=== PATIENT | male | born 1960 | race Caucasian/White ===

== ENCOUNTER 2019-08-31 14:54 | Emergency (ER) | payer OTHER, SELFPAY ==
[2019-08-31 14:55] VITALS: BP 147/81; PULSE 85; RESP 18; TEMP 36.6; O2SAT 100
--- NOTE | 2019-08-31 15:06 | ED.GENADULT ---
HPI - General Adult General Chief complaint: Head Injury <Rufus Mosquera PA-C - Last Filed: 08/31/19 15:10> Stated complaint: HEAD INJURY <Rufus Mosquera PA-C - Last Filed: 08/31/19 15:10> Time Seen by Provider: 08/31/19 15:04 <Rufus Mosquera PA-C - Last Filed: 08/31/19 15:10> Source: patient <Rufus Mosquera PA-C - Last Filed: 08/31/19 15:10> Mode of arrival: ambulatory <Rufus Mosquera PA-C - Last Filed: 08/31/19 15:10> Limitations: no limitations <Rufus Mosquera PA-C - Last Filed: 08/31/19 15:10> History of Present Illness HPI narrative: Patient is a 59-year-old male who presents to emergency department for evaluation of head injury noting that he was cutting a branch down when it struck him in the left temporal region where he developed bleeding patient denies syncope loss of consciousness notes mild discomfort at the location of the wound denies headache or neck pain and presents per private vehicle in no distress. Patient notes his tetanus to be up-to-date <Rufus Mosquera PA-C - Last Filed: 08/31/19 15:10> Related Data Home medications: Home Medications Medication Instructions Recorded Confirmed atorvastatin 08/31/19 lisinopril 08/31/19 metoprolol tartrate 08/31/19 nitroglycerin mg 08/31/19 rosuvastatin mg 08/31/19 ticagrelor [Brilinta] mg 08/31/19 <Rufus Mosquera PA-C - Last Filed: 08/31/19 15:10> Allergies/adverse reactions: Allergies Allergy/AdvReac Type Severity Reaction Status Date / Time Sulfa (Sulfonamide Allergy Unknown Hives Verified 08/31/19 14:57 Antibiotics) <Rufus Mosquera PA-C - Last Filed: 08/31/19 15:10> Review of Systems Review of Systems: All systems reviewed & are unremarkable except as noted in HPI and below <Rufus Mosquera PA-C - Last Filed: 08/31/19 15:10> PMFSH Past Medical History Medical History: Medical History (Updated 08/31/19 @ 15:10 by Rufus Mosquera PA-C) Hypertension <Rufus Mosquera PA-C - Last Filed: 08/31/19 15:10> Surgical History Surgical History: Surgical History (Updated 08/31/19 @ 15:07 by Rufus Mosquera PA-C) Stented coronary artery <Rufus Mosquera PA-C - Last Filed: 08/31/19 15:10> Family History Family History: Family History Sibling Patient's brother is in good health Mother Family history of elevated blood lipids Father Family history of lung cancer Patient's father is <Rufus Mosquera PA-C - Last Filed: 08/31/19 15:10> Social History Social History: Social History Smoking status: Never smoker Alcohol intake: current Gender identity (if verbalized by the patient): Male <Rufus Mosquera PA-C - Last Filed: 08/31/19 15:10> Exam Narrative: Exam Narrative: GENERAL: Well-appearing, well-nourished, and in no acute distress. HEAD: Normocephalic, 1 cm superficial linear laceration left temporal parietal scalp EYES: PERRLA and EOMI. ENT: Nares clear, no rhinorrhea or epistaxis. Mucous membranes moist. Oropharynx without tonsillar hypertrophy exudate or other lesions. NECK: Supple. No adenopathy or masses. CHEST: Clear to auscultation. No respiratory distress. No wheezes rales or rhonchi HEART: Regular rate and rhythm. No murmur heard. EXTREMITIES: Normal range of motion. No edema. No cervical spine tenderness to palpation SKIN: Warm, dry, no rash. NEURO: No focal deficits. Alert and oriented x3. Cranial nerves II through XII grossly intact PSYCH: Normal mood and affect. <Rufus Mosquera PA-C - Last Filed: 08/31/19 15:10> Course Course Emergency Course: Patient in the room in no distress aware of case findings treatment plan and diagnosis <Rufus Mosquera PA-C - Last Filed: 08/31/19 15:10> Vital Signs Vital signs: Vital Signs Temperature
== END 2019-08-31 15:24 | disposition home or self-care (01) ==
LOC: ANHED 15:21
PROVIDERS: Emergency Provider General Practice; PCP Internal Medicine
DX: S01.01XA Laceration without foreign body of scalp, initial encounter (principal); I10 Essential (primary) hypertension; Y93.H2 Activity, gardening and landscaping; W20.8XXA Other cause of strike by thrown, projected or falling object, initial encounter
CPT/HCPCS: 12001; 99282

== ENCOUNTER 2021-02-23 06:44 | Outpatient (CLI) | payer OTHER, SELFPAY ==
[2021-02-23 07:53] LABS: Alanine Aminotransferase 36 U/L (4-50); Albumin Level 4.1 g/dL (3.5-5.1); Alkaline Phosphatase 73 U/L (38-126); Anion Gap 5 mmol/L (8-16); Aspartate Amino Transferase 33 U/L (17-59); Bilirubin,Total 0.5 mg/dL (0.2-1.3); Blood Urea Nitrogen 21 mg/dL (9-20); Calcium 9.3 mg/dL (8.4-10.2); Carbon Dioxide 29 mmol/L (22-30); Chloride 105 mmol/L (98-107); Cholesterol 178 mg/dL (0-200); Estimated Glomerular Filt Rate > 60; Glucose 88 mg/dL (65-110); HDL Direct 54 mg/dL; Potassium 4.7 mmol/L (3.4-5.0); Sodium 139 mmol/L (137-145); Triglycerides 125 mg/dL (<150)
[2021-02-23 08:04] LABS: LDL Cholesterol Direct 89 mg/dL
[2021-02-23 08:22] LABS: Prostate Specific Antigen 0.7 ng/mL (< OR = 4.0)
== END 2021-02-23 06:45 | disposition home or self-care (01) ==
PROVIDERS: PCP Internal Medicine; Visit Provider Internal Medicine
DX: I21.11 ST elevation (STEMI) myocardial infarction involving right coronary artery (principal); E78.5 Hyperlipidemia, unspecified; Z12.5 Encounter for screening for malignant neoplasm of prostate
CPT/HCPCS: 36415; 80053; 80061; 84153; G0103

== ENCOUNTER 2022-03-08 07:05 | Outpatient (CLI) | payer OTHER, SELFPAY ==
[2022-03-08 07:32] LABS: Alanine Aminotransferase 20 U/L (6-50); Alkaline Phosphatase 83 U/L (38-126); Anion Gap 8 mmol/L (8-16); Aspartate Amino Transferase 24 U/L (17-59); Bilirubin,Total 0.4 mg/dL (0.2-1.3); Blood Urea Nitrogen 25 mg/dL (9-20); Calcium 8.8 mg/dL (8.4-10.2); Carbon Dioxide 28 mmol/L (22-30); Chloride 102 mmol/L (98-107); Cholesterol 216 mg/dL (0-200); Estimated Glomerular Filt Rate > 60; Glucose 88 mg/dL (65-110); HDL Direct 47 mg/dL; Potassium 4.2 mmol/L (3.4-5.0); Sodium 138 mmol/L (137-145); Triglycerides 109 mg/dL (<150)
[2022-03-08 07:40] LABS: LDL Cholesterol Direct 138 mg/dL
[2022-03-08 07:59] LABS: Prostate Specific Antigen 1.7 ng/mL (< OR = 4.0)
== END 2022-03-08 07:06 | disposition home or self-care (01) ==
LOC: ANHLAB 07:08
PROVIDERS: PCP Internal Medicine; Visit Provider Internal Medicine
DX: Z12.5 Encounter for screening for malignant neoplasm of prostate (principal); I21.11 ST elevation (STEMI) myocardial infarction involving right coronary artery; E78.5 Hyperlipidemia, unspecified
CPT/HCPCS: 36415; 80053; 80061; 84153; G0103

== ENCOUNTER 2022-03-17 12:38 | Emergency (ER) | payer OTHER, SELFPAY ==
[2022-03-17] VITALS (7 sets, daily range): BP systolic 129–161; BP diastolic 70–81; PULSE 72–82; RESP 14–23; TEMP 36.8; O2SAT 94–99
--- NOTE | ~2022-03-17 | CT_ITS ---
EXAMINATION: CT brain wo con INDICATION: Right-sided facial droop, gaze palsy COMPARISON: None TECHNIQUE: Standard unenhanced head CT. The dose-length product (DLP) was 605.33 mGy-cm. The mA was a djusted according to patient size. Iterative reconstruction technique was employed. FINDINGS: There is no intracranial hemorrhage, acute infarction, or abnormal mass lesion. The ventric les are normal. There is no abnormal mass effect or midline shift. The head-white matter differentiat ion is normal. The basal cisterns are patent. The orbits are normal. The paranasal sinuses, mastoids and calvarium are normal. IMPRESSION: 1. No acute intracranial abnormality. Reviewed, dictated and finalized at location B.
--- NOTE | ~2022-03-17 | XR_ITS ---
EXAMINATION: XR chest 1V INDICATION: Right-sided facial droop TECHNIQUE: AP view of the chest is obtained. COMPARISON: 11/10/2018 FINDINGS: The lungs are free of acute opacities. No pleural effusion or pneumothorax. The cardiomedia stinal silhouette is normal. IMPRESSION: 1. No acute cardiopulmonary abnormality. Reviewed, dictated and finalized at location B.
[2022-03-17 12:56] LABS: Glucose Point of Care 133 mg/dl (65-105)
--- NOTE | 2022-03-17 12:57 | ECG_ITS ---
Measurements Intervals [place] Rate: 65 P: 59 ID: 157 QRS: 20 QRSD: 102 T: 7 QT: 379 QTc: 397 Interpretive Statements SINUS RHYTHM CONSIDER INFERIOR INFARCT, AGE INDETERMINATE BASELINE ARTIFACT- AVR, V1 ABNORMAL ECG COMPARED TO ECG 11/10/2018 19:56:52 NO SIGNIFICANT CHANGES Electronically Signed On 03-17-2022 15:44:17 CDT by Evans Garcia D.O.
[2022-03-17 13:08] LABS: Basophils Absolute Auto 0.1 K/mm3 (0.0-0.1); Basophils Percent Auto 0.6 % (0.2-1.2); Eosinophils Absolute Auto 0.3 K/mm3 (0-0.3); Eosinophils Percent Auto 3.8 % (0-4.4); Hematocrit 44.6 % (42.0-52.0); Hemoglobin 15.5 g/dL (14.0-18.0); Immature Granulocyte Absolute 0.03 K/mm3 (0.00-0.031); Immature Granulocyte Percent A 0.3 % (0-0.5); Lymphocytes Absolute Auto 2.35 K/mm3 (0.9-3.2); Lymphocytes Percent Auto 26.9 % (18.3-44.2); Mean Corpuscular HGB Conc 34.8 g/dl (32-36); Mean Corpuscular Hemoglobin 31.3 pg (26-34); Mean Corpuscular Volume 89.9 fl (80-100); Monocytes Absolute Auto 0.7 K/mm3 (0.1-0.6); Neutrophils Absolute Auto 5.3 K/mm3 (1.3-6.7); Neutrophils Percent Auto 60.4 % (45.5-73.1); Platelet Count Result 227 k/mm3 (150-375); Red Blood Count 4.96 M/mm3 (4.6-6.20); Red Cell Distribution Width 11.9 % (11.5-14.5); White Blood Count 8.8 K/mm3 (4.5-10.0)
--- NOTE | 2022-03-17 13:12 | ED.NEUROSD ---
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 Patient denies any numbness, tingling or weakness anywhere else in his body. History of hyperlipidemia, intermittent marijuana use,. He denies any fever, chills, nausea, vomiting, chest pain or shortness of breath Related Data Home Medications Medication Instructions Recorded Confirmed lisinopril 2.5 mg tablet 08/31/19 01/21/22 metoprolol tartrate 25 mg tablet 08/31/19 01/21/22 ticagrelor 90 mg tablet (Brilinta) mg 08/31/19 01/21/22 aspirin 81 mg tablet,delayed 81 mg PO DAILY 01/18/21 01/21/22 release (Adult Aspirin Regimen) ezetimibe 10 mg tablet 10 mg PO DAILY 01/21/22 01/21/22 Allergies Allergy/AdvReac Type Severity Reaction Status Date / Time Sulfa (Sulfonamide Allergy Unknown Hives Verified 03/17/22 12:57 Antibiotics) Review of Systems Review of Systems: All systems reviewed & are unremarkable except as noted in HPI and below PMFSH Past Medical History Medical History Hypertension Surgical History Surgical History Stented coronary artery Family History Family History Sibling Patient's brother is in good health Mother Family history of elevated blood lipids Father Family history of lung cancer Patient's father is Social History Social History Smoking status: Never smoker Alcohol intake: current Drinks per week: 3 Alcohol use details: 3 or 4 per week Substance use: current Substance use type: marijuana Gender identity (if verbalized by the patient): Male Exam Narrative: General appearance: Well-developed, well-nourished Skin: Normal color Head: Normocephalic, nontraumatic, unable to raise the right eyebrow, flat forehead muscles when he tried to wrinkle his forehead Eyes: Clear conjunctiva, unable to close right eye ENT: Oropharynx normal, ears normal, nose normal, right facial drooping, active left facial muscle when he smiles, right side is paralyzed Neck: Supple, nontender Chest and respiratory: Airway patent, no respiratory distress, no accessory muscle use Heart: Regular rate/rhythm Abdomen: Soft, nontender, no organomegaly, quiet bowel sounds Vascular: Normal peripheral pulses, normal capillary refill. Musculoskeletal: Normal range of motion, nontender back Neurologic: Alert and oriented ?3, TAILER OFF is normal as tested, no gross motor deficit Course Course Emergency Course: Stable Vital Signs Vital signs: Vital Signs Blood Pressure 161/79 H 03/17/22 12:48 Pulse Oximetry 95 03/17/22 12:48 Temperature 36.8 C 03/17/22 12:58 Pulse Rate 78 03/17/22 14:31 Respiratory Rate 23 H 03/17/22 14:31 Blood Pressure 132/74 03/17/22 14:31 Pulse Oximetry 94 03/17/22 14:31 Oxygen Delivery Room Air 03/17/22 12:52 MDM - Neuro Symptoms/Deficit Lab Data Result diagrams: 03/17/22 13:01 03/17/22 13:01 Labs: Lab Results 03/17/22 03/17/22 03/17/22 Range/Units 12:54 13:00 13:01 WBC 8.8
[2022-03-17 13:19] LABS: Alanine Aminotransferase 27 U/L (6-50); Albumin Level 4.6 g/dL (3.5-5.1); Alkaline Phosphatase 79 U/L (38-126); Anion Gap 13 mmol/L (8-16); Aspartate Amino Transferase 33 U/L (17-59); Bilirubin,Total 0.6 mg/dL (0.2-1.3); Blood Urea Nitrogen 22 mg/dL (9-20); Calcium 9.1 mg/dL (8.4-10.2); Carbon Dioxide 25 mmol/L (22-30); Chloride 102 mmol/L (98-107); Estimated CRCL calculation 85 ml/min; Estimated Glomerular Filt Rate > 60; Glucose 111 mg/dL (65-110); Potassium 4.1 mmol/L (3.4-5.0); Sodium 140 mmol/L (137-145)
[2022-03-17 13:26] LABS: Partial Thromboplastin Time 27.4 SECONDS (22.3-36.8); Prothrombin Time 12.6 Seconds (11.1-14.7)
[2022-03-17 13:31] LABS: Troponin I < 0.012 ng/mL (0.000-0.034)
[2022-03-17 14:00] LABS: Hemoglobin A1C 5.3 % (<5.7)
== END 2022-03-17 15:05 | disposition home or self-care (01) ==
PROVIDERS: Emergency Provider Emergency Medicine; PCP Internal Medicine
DX: G51.0 Bell's palsy (principal); I10 Essential (primary) hypertension; E78.5 Hyperlipidemia, unspecified; Z79.01 Long term (current) use of anticoagulants; Z79.82 Long term (current) use of aspirin; Z95.5 Presence of coronary angioplasty implant and graft; F12.90 Cannabis use, unspecified, uncomplicated; R29.703 NIHSS score 3; Z79.899 Other long term (current) drug therapy
CPT/HCPCS: 36415; 70450; 71045; 80053; 82948; 83036; 84443; 84484; 85025; 85610; 85730; 93005; 99284

== ENCOUNTER 2022-06-10 00:39 | Day surgery (SDC) | payer OTHER, SELFPAY ==
[2022-05-25 14:04] VITALS: BMI 22.4
[2022-06-10 08:51] VITALS: BP 139/72; PULSE 73; RESP 18; TEMP 36.4; O2SAT 100
[2022-06-10] MEDS: LACTATED RINGERS 1,000 ML 150 ML IV CONT (09:02)
--- NOTE | 2022-06-10 09:03 | WPDANESEPPF ---
Anes - Initial Pre Proc Eval Procedure: Operation Date: 06/10/22 10:00 Proposed Procedures p Screening Colonoscopy - Arun Orellana MD Date/Time: 06/10/22 09:03 Surgeon: Arun Orellana MD Pre Op Diagnosis: hx of colon polyps Patient Data Age: 61 Gender: M Height: 1.68 m Weight: 62 kg Last Vital Signs Temp 36.4 C 06/10/22 08:51 Pulse 73 06/10/22 08:51 Resp 18 06/10/22 08:51 BP 139/72 06/10/22 08:51 Pulse Ox 100 06/10/22 08:51 O2 Del Method Room Air 06/10/22 08:51 Allergies Allergy/AdvReac Type Severity Reaction Status Date / Time Sulfa (Sulfonamide Allergy Unknown Hives Verified 06/10/22 08:50 Antibiotics) Home Medications Medication Instructions Recorded Confirmed Type metoprolol tartrate 25 mg tablet 25 mg PO DAILY 08/31/19 05/25/22 History aspirin 81 mg tablet,delayed 81 mg PO DAILY 01/18/21 05/25/22 History release (Adult Aspirin Regimen) ezetimibe 10 mg tablet 10 mg PO DAILY 01/21/22 05/25/22 History sodium,potassium,mag sulfates 17.5 See Rx Instructions PO .COMPLEX 04/26/22 Rx gram-3.13 gram-1.6 gram oral soln #354 mL (Suprep Bowel Prep Kit) Patient hx anesthesia problems: none Family hx anesthesia problems: none Results Review: All pre-operative results and documents have been reviewed as part of the pre-operative evaluation. [facility] Past Medical History Medical History (Updated 06/10/22 @ 09:03 by Moise Barbosa MD) CAD (coronary artery disease) Hypertension Surgical History Surgical History History of coronary artery stent placement Stented coronary artery Family History Family History Sibling Patient's brother is in good health Mother Family history of elevated blood lipids Father Family history of lung cancer Patient's father is Social History Social History Smoking status: Never smoker Alcohol intake: current Drinks per week: 6 Alcohol use details: 3 or 4 per week Substance use: current Substance use type: marijuana Other substance usage details: occasionally Living arrangements: alone Gender identity (if verbalized by the patient): Male Spiritual care concerns: No Anes - Eval Final PreProcedure Day of Procedure 06/10/22 09:03 Patient weight: normal Heart: regular rate and rhythm Lungs: clear to auscultation Airway: Mallampati scale Neurological: alert and oriented Last oral intake: >/= 8 hours ASA classification: III Emergent: no Anesthetic plan: proceed Anesthesia type and monitoring: general GIVS and standard monitoring Results Review: All pre-operative results and documents have been reviewed as part of the pre-operative evaluation. Informed Consent: The patient's anesthetic plan and its attendant risks and benefits were discussed with the patient/family/POA. Questions were solicited and answers provided to the satisfaction of the patient/family/POA.
--- NOTE | 2022-06-10 09:20 | PM.HPGS ---
History of Present Illness History of Present Illness Consent: Risks, benefits, and alternatives have been discussed and questions answered. Patient agrees to proceed with procedure. Chief complaint: hx of colon polyps Narrative: Tawanda Arenas is a 61 year old male Presents for screening colonoscopy. Patient's current weight appetite and bowel movements are normal. Patient denies abdominal pain. He has had no bleeding. Family history noncontributory. Patient has previous colonoscopy 2016 revealed benign colon polyps. Patient does have a past medical history of atherosclerotic heart disease and history of heart stent. He is being treated for elevated cholesterol. Review of Systems Review of Systems: Review of systems noncontributory. [facility] Past Medical History Medical History (Updated 06/10/22 @ 09:03 by Moise Barbosa MD) CAD (coronary artery disease) Hypertension Surgical History Surgical History History of coronary artery stent placement Stented coronary artery Family History Family History Sibling Patient's brother is in good health Mother Family history of elevated blood lipids Father Family history of lung cancer Patient's father is Social History Social History Smoking status: Never smoker Alcohol intake: current Drinks per week: 6 Alcohol use details: 3 or 4 per week Substance use: current Substance use type: marijuana Other substance usage details: occasionally Living arrangements: alone Gender identity (if verbalized by the patient): Male Spiritual care concerns: No Meds Home Medications and Allergies Home Medications Medication Instructions Recorded Confirmed Type metoprolol tartrate 25 mg tablet 25 mg PO DAILY 08/31/19 05/25/22 History aspirin 81 mg tablet,delayed 81 mg PO DAILY 01/18/21 05/25/22 History release (Adult Aspirin Regimen) ezetimibe 10 mg tablet 10 mg PO DAILY 01/21/22 05/25/22 History sodium,potassium,mag sulfates 17.5 See Rx Instructions PO .COMPLEX 04/26/22 Rx gram-3.13 gram-1.6 gram oral soln #354 mL (Suprep Bowel Prep Kit) Allergies Allergy/AdvReac Type Severity Reaction Status Date / Time Sulfa (Sulfonamide Allergy Unknown Hives Verified 06/10/22 08:50 Antibiotics) Vital Signs Vital Signs - 24 hr 06/10/22 08:51 Temperature 97.6 F Pulse Rate 73 Respiratory Rate 18 Blood Pressure 139/72 Pulse Oximetry 100 Oxygen Delivery Room Air Exam Narrative: Physical exam reveals patient be alert. Vital signs stable. HEENT exam is unremarkable. Patient is anicteric. Lungs are clear to auscultation and percussion. Heart is without murmur or extra sounds. Abdomen bowel sounds are present soft nontender with no organomegaly. Digital external rectal exam is normal. Assessment and Plan Assessment and plan (1) Hx of adenomatous colonic polyps: Code(s): Z86.010 - Personal history of colonic polyps Status: Acute Assessment and Plan: Patient has a history of adenomatous colon polyp removed from the colon 2016. Plan for surveillance colonoscopy now. Consider this a 5 year intervals in the future.
--- NOTE | 2022-06-10 10:15 | SUR.OPER ---
Dr. Orellana advised that the sigmoid polyp was not retrieved. Angelia Jara and Bianca Santiago
[2022-06-10 10:17] VITALS: BP 110/73; PULSE 64; RESP 23; O2SAT 99
[2022-06-10 10:27] VITALS: BP 140/89; PULSE 61; RESP 17; O2SAT 100
[2022-06-10 10:37] VITALS: BP 154/86; PULSE 53; RESP 23; O2SAT 100
== END 2022-06-10 11:12 | disposition home or self-care (01) ==
PROVIDERS: PCP Internal Medicine; Visit Provider Internal Medicine Gastroenterology
PROC: 0DJD8ZZ Inspection of Lower Intestinal Tract, Via Natural or Artificial Opening Endoscopic (ICD-10-PCS; CPT 45378; principal; 2022-06-10 10:00)
DX: Z12.11 Encounter for screening for malignant neoplasm of colon (principal); D12.2 Benign neoplasm of ascending colon; K63.5 Polyp of colon; K57.30 Diverticulosis of large intestine without perforation or abscess without bleeding; K64.8 Other hemorrhoids; I25.10 Atherosclerotic heart disease of native coronary artery without angina pectoris; I10 Essential (primary) hypertension; E78.00 Pure hypercholesterolemia, unspecified; Z79.82 Long term (current) use of aspirin; Z95.5 Presence of coronary angioplasty implant and graft; F12.90 Cannabis use, unspecified, uncomplicated
CPT/HCPCS: 45385; 88305; J2704; J7120

== ENCOUNTER 2022-12-27 15:45 | Outpatient (RCR) | payer OTHER, SELFPAY ==
--- NOTE | 2022-12-01 16:49 | OPREHPOC ---
Outpatient Therapy Plan of Care This is a Multidisciplinary Plan of Care that may contain components documented by all disciplines (PT, OT, and ST.) PT Problem 1 PT Problem #1 Knowledge Deficit PT Goal 1 Goal Independent with HEP Target Visit 6 PT Problem 2 PT Problem #2 Pain PT Goal 1 Goal no pain over 1/10 with running Target Visit 6 PT Problem 3 PT Problem #3 Impaired Strength PT Goal 1 Goal YAMILEX ankle 5/5 Target Visit 6 PT Problem 4 PT Problem #4 Impaired Flexibility PT Goal 1 Goal mild gastroc tightness to allow for L ankle dorsiflexion of 14 degrees. Target Visit 6
--- NOTE | 2022-12-01 16:49 | PTOPEVAL1 ---
Assessment and note entered by Robin Peralta, PT Evaluation Information Assessment Status Evaluation Diagnosis L foot/ankle pain Onset around Jun last year Subjective Information Patient reports he is an avid runner. Averaging 4 runs from 3-13 miles a week. He was noticing pain in his L ankle when starting his runs, but the pain going away after about 2 miles. He did not do any warm-ups prior to running. About 2-3 weeks ago he also rolled his ankle on a run. Has held off running since then. He has iced the ankle, but does still have some swelling. No radiating pain. Reported Pain Level Pain Score 0: Self Report Assessment PT Clinical Summary Sunil is coming in with L ankle/foot pain. He is negative with all special tests and has good range of motion besides dorsiflexion which I think is from his gastroc tightness. YAMILEX ankles are actually weak 4/5 compared to 5/5 for everything else. Physical therapy will work on stretching gastroc and strengthening ankle muscles along with starting the patient on a pre run warm up routine which should help with his pain. Manual and modalities as needed for pain. Plan of Care Interventions Electrical Stimulation,Gait Training,Hot Pack/Cold Pack,Manual Therapy,Neuro Re-education,Patient/ Caregiver Education,Therapeutic Activities, Therapeutic Exercise,Ultrasound Other Interventions cupping, taping, IASTM PT Services Indicated Yes Treatment Frequency and 1-2x/wk for 4 weeks Duration These treatments will address the objective and functional deficits as defined above. The patient will be advanced safely and appropriately in order for the patient to progress towards his/her prior level of function. Additional exercises will be introduced and as well as a comprehensive home exercise program upon discharge, if needed, ?to ensure carryover of functional gains achieved in the clinic. This treatment plan has been reviewed and agreement upon by the patient.
--- NOTE | 2022-12-27 16:26 | PTOPDC ---
Assessment and note entered by Robin Peralta, PT Evaluation Information Assessment Status Discharge Diagnosis L ankle and foot pain Onset around Jun last year Subjective Information Patient reports no issues with pain running, or not running. Ran a 10 K last weekend and 11 miles this weekend. Patient ready for discharge. Reported Pain Level Pain Score 0: Self Report Pain Score 0: Self Report Assessment PT Clinical Summary Sunil is a 62 year old male coming into the clinic with a diagnosis of L ankle/foot pain. He was evaluated on 12/01/22 and attended 8 sessions. Patient has met all of his goals and continues to run without issue. Discharged from skilled physical therapy. Plan of Care PT Services Indicated No
== END 2022-12-28 07:03 | disposition home or self-care (01) ==
LOC: ANHPT 15:45
PROVIDERS: PCP Family Medicine; Visit Provider Nurse Practitioner Family
DX: M25.572 Pain in left ankle and joints of left foot (principal)
CPT/HCPCS: 97110; 97112; 97161; 97530

== ENCOUNTER 2023-02-09 07:03 | Outpatient (CLI) | payer OTHER, SELFPAY ==
[2023-02-09 07:28] LABS: Hemoglobin 15.3 g/dL (14.0-18.0); Mean Corpuscular Hemoglobin 31.4 pg (26-34); Mean Corpuscular Volume 92.4 fl (80-100); Platelet Count Result 217 k/mm3 (150-375); Red Blood Count 4.87 M/mm3 (4.6-6.20); Red Cell Distribution Width 11.7 % (11.5-14.5)
[2023-02-09 07:40] LABS: Alanine Aminotransferase 59 U/L (6-50); Albumin Level 4.2 g/dL (3.5-5.1); Alkaline Phosphatase 92 U/L (38-126); Anion Gap 5 mmol/L (8-16); Aspartate Amino Transferase 45 U/L (17-59); Bilirubin,Total 0.7 mg/dL (0.2-1.3); Blood Urea Nitrogen 22 mg/dL (9-20); Carbon Dioxide 31 mmol/L (22-30); Chloride 103 mmol/L (98-107); Cholesterol 142 mg/dL (0-200); Estimated Glomerular Filt Rate > 60; Glucose 81 mg/dL (65-110); HDL Direct 40 mg/dL; Potassium 4.2 mmol/L (3.4-5.0); Sodium 139 mmol/L (137-145); Triglycerides 96 mg/dL (<150)
[2023-02-09 07:51] LABS: LDL Cholesterol Direct 78 mg/dL
[2023-02-09 08:10] LABS: Prostate Specific Antigen 0.8 ng/mL (< OR = 4.0)
== END 2023-02-09 07:04 | disposition home or self-care (01) ==
PROVIDERS: PCP Nurse Practitioner; Visit Provider Nurse Practitioner
DX: Z12.5 Encounter for screening for malignant neoplasm of prostate (principal); E78.5 Hyperlipidemia, unspecified; Z79.899 Other long term (current) drug therapy
CPT/HCPCS: 36415; 80053; 80061; 84153; 85027; G0103

== ENCOUNTER 2023-05-20 16:36 | Emergency (ER) | payer OTHER, SELFPAY ==
[2023-05-20] VITALS (21 sets, daily range): BP systolic 128–162; BP diastolic 75–94; PULSE 71–92; RESP 11–24; TEMP 36.4; O2SAT 97–100
--- NOTE | ~2023-05-20 | XR_ITS ---
EXAMINATION: XR chest 1V portable Exam Date/Time: 05/20/2023 16:55 ETHANOL OPERATIONS MANAGER HISTORY: CP; hx of CAD, HTN, non smoker Comparison: 03/17/2022. RESULT: Lines, tubes, and devices: None. Lungs and pleura: Clear. Cardiomediastinal silhouette: Stable. Other: No acute osseous or upper abdominal finding. IMPRESSION: No acute cardiopulmonary process. Reviewed, dictated and finalized at location K. NOL OPERATIONS MANAGER
--- NOTE | ~2023-05-20 | CT_ITS ---
EXAMINATION: CT abdomen pelvis w con DATE: 05/20/2023 17:57 INDICATION: Elevated lipase TECHNIQUE: Computed tomography (CT) of the abdomen and pelvis was performed with 100 mL Omnipaque-350 intravenous contrast. Automated exposure control and iterative reconstruction technique were employe d. The dose-length product was 282.00 mGy-cm. COMPARISON: None. FINDINGS: Lower thorax: Bibasilar scar/atelectasis. Coronary artery calcifications. Liver: Left lobe cyst. Mild adjacent left lobe intrahepatic duct dilation. Biliary/Gallbladder: Gallbladder is normal. No extrahepatic bile duct dilation. Pancreas: No mass or duct dilation. Spleen: Normal. Adrenals:No mass. Kidneys: No suspicious mass, obstructing stone, or hydronephrosis. Simple bilateral cysts. GI tract: Mild distal esophageal and gastric wall edema. No small or large bowel dilation. Normal marshal endix. Mesentery/Peritoneum: No ascites, mass, or free air. Retroperitoneum: No mass. Pelvis: Pelvic organs are within normal limits. Soft Tissues: Soft tissues and body wall unremarkable. Bones: No acute osseous finding. IMPRESSION: Mild esophagitis/gastritis. Otherwise, no acute abdominopelvic process detected. Reviewed, dictated and finalized at location K. 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
--- NOTE | 2023-05-20 16:38 | ECG_ITS ---
Measurements Intervals [place] Rate: 83 P: 65 [place]: 148 QRS: 16 QRSD: 109 T: 37 QT: 386 QTc: 455 Interpretive Statements SINUS RHYTHM ATRIAL AND VENTRICULAR PREMATURE COMPLEXES POSSIBLE LEFT ATRIAL ENLARGEMENT CONSIDER INFERIOR INFARCT, AGE INDETERMINATE BASELINE ARTIFACT- II, III, AVR, AVL, AVF ABNORMAL ECG COMPARED TO ECG 03/17/2022 13:51:03 NO SIGNIFICANT CHANGES Electronically Signed On 05-21-2023 6:19:33 STOCK BROKER by Evans Garcia D.O.
--- NOTE | 2023-05-20 16:38 | ED.CHESTPAIN ---
HPI - Chest Pain General Chief Complaint: Chest Pain Stated Complaint: left chest pain Time Seen by Provider: 05/20/23 16:38 Source: patient Mode of arrival: ambulatory Limitations: no limitations History of Present Illness HPI narrative: 62 years old white male came by private car complaining of feeling dizzy while standing in the charge, resolved on sitting. 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 History of coronary artery disease, 1 stent 2018, patient on aspirin, history of hyperlipidemia. Patient ran 5K this morning without any symptoms. Patient normally runs a 5K every other day he denies any chest pain or shortness of breath during that time. Patient does not smoke or uses drugs, drinks occasionally he denied any stress or anxiety. Related Data Home Medications Medication Instructions Recorded Confirmed aspirin 81 mg tablet,delayed 81 mg PO DAILY 01/18/21 01/27/23 release (Adult Aspirin Regimen) ezetimibe 10 mg tablet 10 mg PO DAILY 01/21/22 01/27/23 Allergies Allergy/AdvReac Type Severity Reaction Status Date / Time Sulfa (Sulfonamide Allergy Unknown Hives Verified 05/20/23 16:49 Antibiotics) Review of Systems Review of Systems: All systems reviewed & are unremarkable except as noted in HPI and below PMFSH Past Medical History Medical History CAD (coronary artery disease) Hypertension Surgical History Surgical History History of coronary artery stent placement Stented coronary artery Family History Family History Sibling Patient's brother is in good health Mother Family history of elevated blood lipids Father Family history of lung cancer Patient's father is Social History Social History Smoking status: Never smoker Alcohol intake: current Drinks per week: 5 Substance use: former Substance use type: marijuana Other substance usage details: occasionally Living arrangements: alone Gender identity (if verbalized by the patient): Male Spiritual care concerns: No Exam Narrative: General appearance: Well-developed, well-nourished, patient looks restless. Skin: Normal color Head: Normocephalic, nontraumatic Eyes: Clear conjunctiva ENT: Oropharynx normal, ears normal, nose normal Neck: Supple, nontender Chest and respiratory: Airway patent, no respiratory distress, no accessory muscle use Heart: Regular rate/rhythm Abdomen: Soft, nontender, no organomegaly, quiet bowel sounds Vascular: Normal peripheral pulses, normal capillary refill. Musculoskeletal: Normal range of motion, nontender back Neurologic: Alert and oriented ?3, MOTOR POLARIZER is normal as tested, no gross motor deficit Course Vital Signs Vital signs: Vital Signs Temperature 36.4 C 05/20/23 16:38 Pulse Rate 80 05/20/23 16:38 Respiratory Rate 20 05/20/23 16:38 Blood Pressure 162/82 H 05/20/23 16:38 Pulse Oximetry 100 05/20/23 16:38 Oxygen Delivery Room Air 05/20/23 16:38 Temperature 36.4 C 05/20/23 16:38 Pulse Rate 77 05/20/23 17:16 Respiratory Rate 19 05/20/23 17:16 Blood Pressure 130/80 05/20/23 17:16 Pulse Oximetry 100 05/20/23 17:16 Oxygen Delivery Room Air 05/20/23 16:47 MDM - Chest Pain MDM Narrative Medical decision making narrative: Patient presents with dizziness Vital signs on arriva
[2023-05-20 16:54] LABS: Basophils Absolute Auto 0.1 K/mm3 (0.0-0.1); Basophils Percent Auto 0.5 % (0.2-1.2); Eosinophils Absolute Auto 0.2 K/mm3 (0-0.3); Eosinophils Percent Auto 1.6 % (0-4.4); Hematocrit 46.5 % (42.0-52.0); Hemoglobin 15.7 g/dL (14.0-18.0); Immature Granulocyte Absolute 0.03 K/mm3 (0.00-0.031); Immature Granulocyte Percent A 0.3 % (0-0.5); Lymphocytes Absolute Auto 3.28 K/mm3 (0.9-3.2); Lymphocytes Percent Auto 30.3 % (18.3-44.2); Mean Corpuscular HGB Conc 33.8 g/dl (32-36); Mean Corpuscular Hemoglobin 30.7 pg (26-34); Mean Platelet Volume 9.7 fl (7.4-10.4); Monocytes Absolute Auto 1.2 K/mm3 (0.1-0.6); Monocytes Percent Auto 10.6 % (2.6-8.5); Neutrophils Absolute Auto 6.2 K/mm3 (1.3-6.7); Neutrophils Percent Auto 56.7 % (45.5-73.1); Platelet Count Result 240 k/mm3 (150-375); Red Blood Count 5.11 M/mm3 (4.6-6.20); Red Cell Distribution Width 11.6 % (11.5-14.5); White Blood Count 10.8 K/mm3 (4.5-10.0)
[2023-05-20 17:06] LABS: Prothrombin Time 13.1 Seconds (11.1-14.7)
[2023-05-20 17:07] LABS: Partial Thromboplastin Time 26.9 SECONDS (22.3-36.8)
[2023-05-20 17:13] LABS: Alanine Aminotransferase 43 U/L (6-50); Albumin Level 4.6 g/dL (3.5-5.1); Alkaline Phosphatase 84 U/L (38-126); Anion Gap 13 mmol/L (8-16); Aspartate Amino Transferase 36 U/L (17-59); Bilirubin,Total 0.7 mg/dL (0.2-1.3); Blood Urea Nitrogen 17 mg/dL (9-20); Calcium 9.2 mg/dL (8.4-10.2); Carbon Dioxide 24 mmol/L (22-30); Chloride 103 mmol/L (98-107); Estimated CRCL calculation 97 ml/min; Estimated Glomerular Filt Rate > 60; Glucose 93 mg/dL (65-110); Lipase 778 U/L (23-300); Potassium 3.5 mmol/L (3.4-5.0); Sodium 140 mmol/L (137-145)
[2023-05-20 17:24] LABS: Troponin I < 0.012 ng/mL (0.000-0.034)
== END 2023-05-20 18:24 | disposition home or self-care (01) ==
PROVIDERS: Emergency Medicine; Emergency Provider Emergency Medicine; PCP Family Medicine
DX: R42 Dizziness and giddiness (principal); K29.70 Gastritis, unspecified, without bleeding; I25.10 Atherosclerotic heart disease of native coronary artery without angina pectoris; I10 Essential (primary) hypertension; E78.5 Hyperlipidemia, unspecified; Z95.5 Presence of coronary angioplasty implant and graft; I49.1 Atrial premature depolarization; I49.3 Ventricular premature depolarization; R94.31 Abnormal electrocardiogram [ECG] [EKG]; Z79.82 Long term (current) use of aspirin
CPT/HCPCS: 36415; 71045; 74177; 80053; 83690; 84484; 85025; 85610; 85730; 93005; 99284; Q9967

== ENCOUNTER 2023-05-26 07:44 | Outpatient (CLI) | payer OTHER, SELFPAY ==
[2023-05-26 09:08] LABS: Lipase 573 U/L (23-300)
== END 2023-05-26 07:45 | disposition home or self-care (01) ==
PROVIDERS: PCP Family Medicine; Visit Provider Nurse Practitioner
DX: R74.8 Abnormal levels of other serum enzymes (principal)
CPT/HCPCS: 36415; 83690

== ENCOUNTER 2023-06-09 07:28 | Outpatient (CLI) | payer OTHER, SELFPAY ==
[2023-06-09 08:25] LABS: Lipase 149 U/L (23-300)
== END 2023-06-09 07:29 | disposition home or self-care (01) ==
PROVIDERS: PCP Family Medicine; Visit Provider Nurse Practitioner
DX: R74.8 Abnormal levels of other serum enzymes (principal)
CPT/HCPCS: 36415; 83690

== ENCOUNTER 2023-07-24 08:27 | Outpatient (CLI) | payer OTHER, SELFPAY ==
--- NOTE | ~2023-07-24 | XR_ITS ---
EXAMINATION:XR_CERV2-3V_CR DATE: 07/24/2023 08:48 INDICATION: Neck pain TECHNIQUE: AP, lateral, and odontoid views of the cervical spine are provided. COMPARISON: None FINDINGS: Alignment is normal. The odontoid process is intact. No fracture is identified. There is mi ld loss of intervertebral disc space height at C5-6. The vertebral body heights are maintained. There is multilevel mild facet and uncovertebral joint osteoarthritis. Prevertebral soft tissues are ranjana l. IMPRESSION: 1. Mild cervical spondylosis without acute findings. Reviewed, dictated and finalized at location F. 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
== END 2023-07-24 08:28 | disposition home or self-care (01) ==
PROVIDERS: PCP Nurse Practitioner; Visit Provider Nurse Practitioner
DX: M43.02 Spondylolysis, cervical region (principal)
CPT/HCPCS: 72040

== ENCOUNTER 2023-09-11 07:34 | Outpatient (RCR) | payer OTHER, SELFPAY ==
--- NOTE | 2023-08-25 13:17 | PCPTNOTE ---
pt called and rescheduled today's eval appt, due to not able to get away from work.
--- NOTE | 2023-09-11 08:36 | OPREHPOC ---
Outpatient Therapy Plan of Care This is a Multidisciplinary Plan of Care that may contain components documented by all disciplines (PT, OT, and ST.) PT Problem 1 PT Problem #1 Knowledge Deficit PT Goal 1 Goal *indep with HEP * correct posture of neck and shoulders with exercises PT Problem 2 PT Problem #2 Pain PT Goal 1 Goal 1* no pain in neck or UE's PT Problem 3 PT Problem #3 Impaired Strength PT Goal 1 Goal 1* pt perform UE and cervical strengthening exercises with good posture and strength of 4+/5.
--- NOTE | 2023-09-11 08:36 | PTOPEVAL1 ---
Assessment and note entered by Marlyn Hernadez, PT Evaluation Information Assessment Status Evaluation Diagnosis cervical radiculopathy Onset May 2023 Subjective Information less neck pain now; did go to ER for neck pain in May, testing was negative; steroid meds helped; did have pain into L UE to hand and shoulder, not had for the past 3 weeks; was able to do all home and work tasks when pain worse; feeling better, but wanted to come in for some exercises and to have his neck checked. 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 Onset was in May and he went to ER due to pain. Now, without pain in his neck or L UE, but he wanted to be checked out and get some exercises to keep it from coming back. With the evaluation, he has full active ROM of neck and both shoulders, without pain; education completed for home exercises, posture/body mechanics. Skilled PT services are indicated for progression of strengthening and monitor pain with increased activity level, with use of modalities PRN and education. Plan of Care Interventions Electrical Stimulation,Hot Pack/Cold Pack,Manual Therapy,Neuro Re-education,Patient Education,Therapeutic Activities,Therapeutic Exercise,Ultrasound,Other Other Interventions cirilo, IASLUCIANO PT Services Indicated Yes Treatment Frequency and 1x/wk for 4 weeks Duration These treatments will address the objective and functional deficits as defined above. The patient will be advanced safely and appropriately in order for the patient to progress towards his/her prior level of function. Additional exercises will be introduced and as well as a comprehensive home exercise program upon discharge, if ne
--- NOTE | 2023-10-18 14:28 | PTOPDC ---
Assessment and note entered by Marlyn Hernadez, PT Discharge Information Assessment Status Discharge - Pt Not Present Diagnosis cervical radiculopathy Onset May 2023 Assessment PT Clinical Summary Sunil attended the PT evaluation and did not return for any further treatment. He will be discharged at this time. The goals were not addressed. Plan of Care PT Services Indicated No
== END 2023-10-18 15:30 | disposition home or self-care (01) ==
LOC: ANHPT 07:34
PROVIDERS: PCP Nurse Practitioner; Visit Provider Nurse Practitioner
DX: M54.12 Radiculopathy, cervical region (principal)
CPT/HCPCS: 97110; 97161

== ENCOUNTER 2024-02-16 12:16 | Emergency (ER) | payer OTHER, SELFPAY ==
--- NOTE | ~2024-02-16 | XR_ITS ---
EXAMINATION: XR chest 2V 02/16/2024 12:43 INDICATION: Nonproductive cough PROCEDURE: 2 view chest COMPARISON: 05/20/2023 and 03/17/2022 FINDINGS: The lungs are clear. The cardiomediastinal silhouette is within normal limits. There are no pleural effusions. There is no pneumothorax suspected. IMPRESSION: 1: NO ACUTE CARDIOPULMONARY DISEASE. Reviewed, dictated and finalized at location B.
--- NOTE | 2024-02-16 12:19 | ED.URI ---
HPI - URI/Sore Throat General Chief Complaint: Upper Respiratory Infection Stated Complaint: Cough/Chills Time Seen by Provider: 02/16/24 12:23 Source: patient, RN notes reviewed and old records reviewed Mode of arrival: ambulatory Limitations: no limitations History of Present Illness HPI Narrative: 63-year-old male presents to the [facility] with complaints of cough, congestion, low-grade fevers for 5-6 days. States that he did take a COVID test when his symptoms 1st started over the weekend. Related Data Home Medications Medication Instructions Recorded Confirmed aspirin 81 mg tablet,delayed 81 mg PO DAILY 01/18/21 02/16/24 release (Adult Aspirin Regimen) ezetimibe 10 mg tablet 10 mg PO DAILY 01/21/22 02/16/24 Allergies Allergy/AdvReac Type Severity Reaction Status Date / Time Sulfa (Sulfonamide Allergy Intermediate Hives Verified 02/16/24 12:19 Antibiotics) Review of Systems Review of Systems: All systems reviewed & are unremarkable except as noted in HPI and below Constitutional: Constitutional: Reports as per HPI, Reports fatigue and Reports fever(s) Eyes: Eyes: Reports no additional eye complaints ENT: Reports system reviewed and no additional complaints, except as documented Cardiovascular: Cardiovascular: Reports no additional cardiovascular complaints, Denies chest pain and Denies dyspnea Respiratory: Respiratory: Reports as per HPI, Reports chest congestion, Reports cough and Denies dyspnea Gastrointestinal: Gastrointestinal: Reports no additional gastrointestinal complaints, Denies abdominal pain, Denies nausea and Denies vomiting Musculoskeletal: Musculoskeletal: Reports no additional musculoskeletal complaints Integumentary/Breasts: Skin/Breast: Reports system reviewed and no additional complaints, except as docu Neurologic: Reports system reviewed and no additional complaints, except as documented Psychiatric: Psychiatric: Reports no additional psychiatric complaints Allergic/Immunologic: Allergic/Immunologic: Reports no additional allergic/immunologic complaints [facility] Past Medical History Medical History CAD (coronary artery disease) Hypertension Surgical History Surgical History History of coronary artery stent placement Stented coronary artery Family History Family History Sibling Patient's brother is in good health Mother Family history of elevated blood lipids Father Family history of lung cancer Patient's father is Social History Social History Smoking status: Never smoker Alcohol intake: current Drinks per week: 5 Substance use: former Substance use type: marijuana Other substance usage details: occasionally Living arrangements: alone Gender identity (if verbalized by the patient): Male Spiritual care concerns: No Comments At the time of my signature, I reviewed and agree with the nursing past medical, surgical, social, and family history. There is no relevant family history pertinent to the patient complaint. Exam Const: General: cooperative, healthy appearing, comfortable, no acute distress, well developed, alert and well nourished Nutritional Appearance: well nourished Orientation/consciousness: patient oriented x3 Limitations: no limitations HENMT: Head: normal to inspection Ears: hearing grossly normal bilaterally and external ears normal Face/Nose/Sinus: Normal external nose present, Normal nares present, Normal nasal mucous membranes and turbinates present, normal facial exam and face symmetric Face and sinus: normal facial exam and face symmetric Mouth: Yes Normal oral and palatal mucosa present, Yes lip normal and Yes tongue normal Throat: posterior oropharynx normal, tonsils normal, uvula midl
[2024-02-16 12:24] VITALS: BP 131/72; PULSE 100; RESP 16; TEMP 38.2; O2SAT 97
== END 2024-02-16 13:08 | disposition home or self-care (01) ==
PROVIDERS: Emergency Provider Nurse Practitioner; PCP Family Medicine
DX: J40 Bronchitis, not specified as acute or chronic (principal); Z20.822 Contact with and (suspected) exposure to COVID-19; I25.10 Atherosclerotic heart disease of native coronary artery without angina pectoris; I10 Essential (primary) hypertension; Z95.5 Presence of coronary angioplasty implant and graft; Z79.82 Long term (current) use of aspirin
CPT/HCPCS: 71046; 87426; 99213; G0463

== ENCOUNTER 2024-05-02 07:03 | Outpatient (CLI) | payer OTHER, SELFPAY ==
[2024-05-02 07:33] LABS: Hematocrit 46.5 % (42.0-52.0); Hemoglobin 15.6 g/dL (14.0-18.0); Mean Corpuscular HGB Conc 33.5 g/dl (32-36); Mean Corpuscular Hemoglobin 30.8 pg (26-34); Mean Corpuscular Volume 91.9 fl (80-100); Mean Platelet Volume 9.6 fl (7.4-10.4); Platelet Count Result 207 k/mm3 (150-375); Red Blood Count 5.06 M/mm3 (4.6-6.20); Red Cell Distribution Width 12.2 % (11.5-14.5); White Blood Count 7.1 K/mm3 (4.5-10.0)
[2024-05-02 07:58] LABS: Alanine Aminotransferase 45 U/L (6-50); Albumin Level 4.2 g/dL (3.5-5.1); Alkaline Phosphatase 85 U/L (38-126); Anion Gap 6 mmol/L (4-12); Aspartate Amino Transferase 35 U/L (17-59); Bilirubin,Total 0.6 mg/dL (0.2-1.3); Blood Urea Nitrogen 21 mg/dL (9-20); Calcium 9.1 mg/dL (8.4-10.2); Carbon Dioxide 31 mmol/L (22-30); Chloride 102 mmol/L (98-107); Cholesterol 150 mg/dL (0-200); Estimated Glomerular Filt Rate > 60; Glucose 82 mg/dL (65-110); HDL Direct 41 mg/dL; Potassium 4.1 mmol/L (3.4-5.0); Sodium 139 mmol/L (137-145); Triglycerides 104 mg/dL (<150)
[2024-05-02 08:05] LABS: LDL Cholesterol Direct 89 mg/dL
== END 2024-05-02 07:04 | disposition home or self-care (01) ==
LOC: ANHLAB 07:06
PROVIDERS: PCP Family Medicine; Visit Provider Family Medicine
DX: Z12.5 Encounter for screening for malignant neoplasm of prostate (principal); I25.10 Atherosclerotic heart disease of native coronary artery without angina pectoris; I25.2 Old myocardial infarction; E78.5 Hyperlipidemia, unspecified; G51.0 Bell's palsy; N40.0 Benign prostatic hyperplasia without lower urinary tract symptoms; L30.9 Dermatitis, unspecified; I10 Essential (primary) hypertension; Z86.0102 Personal history of hyperplastic colon polyps
CPT/HCPCS: 36415; 80053; 80061; 84153; 85027; G0103

== ENCOUNTER 2024-12-04 19:30 | Observation (INO) | payer OTHER, SELFPAY ==
--- NOTE | ~2024-12-04 | CT_ITS ---
CT of the Abdomen and Pelvis: Indication: Lower GI bleed Technique: 2.5 mm axial scans were obtained through the abdomen and pelvis following intravenous adm inistration of 100 cc of Omnipaque 350. Dose reduction technique was used on this scan by utilizing a utomated exposure control and iterative reconstruction technique. The dose-length product (DLP) was 2 71.52 mGy-cm. COMPARISON: 05/20/2023 Findings: Scans through the lung bases are unremarkable. Stable left hepatic lobe cyst. The spleen, pancreas, gallbladder, adrenals and kidneys are within nor mal limits. No evidence of aortic aneurysm. No lymphadenopathy. No bowel obstruction or bowel wall thickening. There is mild diverticulosis. Images through the pelvis were performed. Urinary bladder unremarkable. No pelvic mass seen. No ascit es. Impression: No significant abnormalities seen. Reviewed, dictated and finalized at [facility]. Impression: No significant abnormalities seen.
--- OUTSIDE RECORDS SUMMARY | 2024-12-04 19:32 | XMS_ITS | Clinical Summary ---
Author Organization [facility] Address [address], [address] [address] Phone Care Team Providers Care Maintenance Mechanic Telephone Name Role Phone Dayday Lane MD Primary Care Provider [phone] Arun Carrasco DO Unavailable [phone] Medications polyethylene glycol (MIRALAX) Powder Mix the entire bottle with 64 oz of a clear liquid. Use as directed by the office for colonoscopy prep. 255 g 0 5 Active Social History Tobacco Use Types Packs/Day Years Used Date Smoking Tobacco: Never Assessed Sex and Gender Information Value Date Recorded Sex Assigned at Not on file Legal Sex Male 7:54 PM CDT Gender Identity Not on file Sexual Orientation Not on file Plan of Treatment Health Maintenance Due Date Last Done Comments Hepatitis C Virus (HCV) Screening 1960 TdaP Immunization 1962 Cologuard 2012 Immunochemical Fecal Occult Blood 2012 Pneumococcal Immunization (5 0+ years) (1 of 1 - PCV) 2012 Zoster Immunization (1 of 2) 2012 PSA Discussion 2017 Influenza Immunization (#1) 2024 SARS-COV-2 Immunization ( - 2023- season) 2024 Colonoscopy 08/06/2025 08/06/2015 Colorectal Cancer Screening 08/06/2025 Respiratory Syncytial Virus (RSV) Immunization (Adult) (1 - 1-dose 75+ series) 2037 08/06/2015 Hepatitis B Immunization Aged Out No longer eligible based on patient's age to complete this topic Meningococcal Immunization (ACWY) Aged Out No longer eligible based on patient's age to complete this topic Pneumococcal Immunization Combined Aged Out No longer eligible based on patient's age to complete this topic Rotavirus Immunization Aged Out No lo nger eligible based on patient's age to complete this topic Procedures Procedure Name Priority Date/Time Associated Diagnosis Comments COLONOSCOPY Routine 08/06/2015 from Last 3 Months or Most Recently Relevant to Health Maintenance Results * HM COLONOSCOPY (08/06/2015) Dayday Lane MD PROCEDURE/MINOR SURGICAL ORDER LIANE Final Result from Last 3 Months or Most Recently Relevant to Health Maintenance [place] [address] [place] [address] Care Teams Maintenance Mechanic Telephone Relationship Specialty Start Date End Date Dayday Lane MD [address] [place] [address] PCP - General Internal Medicine 06/09/15 Arun Carrasco DO [address] [place] [address] Gastroenterology 08/06/15
--- OUTSIDE RECORDS SUMMARY | 2024-12-04 19:32 | XMS_ITS | Referral Summary ---
Author Organization [facility] [address] Address [address] [place] [address] Care Team Providers Care Data Management Associate Name Role Phone Luke Magaña MD Primary Care Provider [phone] Allergies Active Allergy Reactions Criticality Noted Date Comments Atorvastatin Hives Medium 11/29/2018 Sulfa (Sulfonamide Antibiotics) Hives Medium 11/08 Medications aspirin (ENTERIC COATED ASPIRIN) 81 mg enteric coated tabletIndication s:History of ST elevation myocardial infarction (STEMI) Take 1 tablet (81 mg total) by mouth daily 11/29/2018 Active rosuvastatin (CRESTOR) 40 mg tabletIndication s:History of ST elevation myocardial infarction (STEMI) TAKE 1 TABLET BY MOUTH EVERY DAY 90 tablet 2 04/15/2024 Active ezetimibe (ZETIA) 10 mg tablet TAKE 1 TABLET(10 MG) BY MOUTH DAILY 90 tablet 2 04/15/2024 Active Active Problems No known active problems Social History Tobacco Use Types Packs/Day Years Used Date Smoking Tobacco: Never Smokeless Tobacco: Never Tobacco Cessation:Counseling Given: Not Answered Alcohol Use Standard Drinks/Week Comments Yes 5 (1 standard drink = 0.6 oz pur e alcohol) AUDIT-C Answer Date Recorded Frequency of Alcohol Consumption 4 or more times a week 11/29/2018 Average Number of Drinks 1 or 2 019 Frequency of Binge Drinking Not on file 11/08 Personal Safety Answer Date Recorded Getting School Help Needed Not on file 01/25 /2024 Sex and Gender Information Value Date Recorded Sex Assigned at Not on file Legal Sex Male 2:15 PM CDT Gender Identity Not on file Sexual Orientation Not on file Last Filed Vital Signs Vital Sign Reading Time Taken Comments Blood Pressure 114/70 02/07/2024 1:54 PM CDT Pulse 81 02/07/2024 1:54 PM CDT Temperature - - Respiratory Rate 15 12/18/2019 9:33 AM CDT Oxygen Saturation 97% 02/07/2024 1:54 PM CDT Inhaled Oxygen Concentration - - Weight 63.5 kg (140 lb 1.6 oz) 02/07/2024 1:54 P M CDT Height 167.6 cm (5' 6) 02/07/2024 1:54 PM CDT Body Mass Index 22.61 02/07/2024 1:54 PM CDT Plan of Treatment Not on file Insurance [facility] Address: [address] [address] [facility] Address: [address] [address] Care Teams Data Management Associate Relationship Specialty Start Date End Date Luke Magaña MD PCP - General Family Practice 01/18/23
--- OUTSIDE RECORDS SUMMARY | 2024-12-04 19:32 | XMS_ITS | Clinical Summary ---
Author Organization [facility] [address] Address [address] [place] [address] Care Team Providers Care Roll Cutter Name Role Phone Luke Magaña MD Primary Care Provider [phone] Allergies Active Allergy Reactions Criticality Noted Date [...] Active Active Problems No known active problems Family History Medical History Relation Name Comments Cancer Father Hyperlipidemia Mother Relation Name Status Comments Father Mother Social History Tobacco Use Types Packs/Day Years [...] Getting School Help Needed Not on file 08/03 Sex and Gender Information Value Date Recorded Sex Assigned at Not on file Legal Sex Male 2:15 PM CDT Gender Identity Not on file Sexual Orientation Not on file Obstetrics History Last Filed Vital Signs Vital Sign Reading [...] 02/07/2024 1:54 PM CDT Plan of Treatment Health Maintenance Due Date Last Done Comments Colon Cancer Screening-Colonoscopy 1962 Depression Screening 1962 Hepatitis C Screening 1962 Prostate Cancer Screening-PSA 1962 DTaP/Tdap/Td Vaccine (1 - Tdap) 1973 Hepatitis B Screening 1980 Regular Well Visit/Exam 18-64 1980 Zoster Vaccine (1 of 2) 2012 Influenza Vaccine (Season Ended) 2025 Pneumococcal vaccine <65 Aged Out No longer eligible based on patient's age to complete this topic Insurance [facility] Care Teams Roll Cutter Relationship Specialty Start Date End Date Luke Magaña MD PCP - General Family Practice 01/18/23
[2024-12-04 19:40] VITALS: BP 153/87; PULSE 60; RESP 18; TEMP 37.2; O2SAT 96
[2024-12-04 22:29] VITALS: BP 140/79; PULSE 67; TEMP 36.8; O2SAT 100
[2024-12-04 23:28] LABS: Basophils Percent Auto 0.4 % (0.2-1.2); Eosinophils Absolute Auto 0.2 K/mm3 (0-0.3); Eosinophils Percent Auto 1.8 % (0-4.4); Hematocrit 38.3 % (42.0-52.0); Hemoglobin 12.9 g/dL (14.0-18.0); Immature Granulocyte Absolute 0.02 K/mm3 (0.00-0.031); Immature Granulocyte Percent A 0.2 % (0-0.5); Lymphocytes Absolute Auto 2.65 K/mm3 (0.9-3.2); Lymphocytes Percent Auto 30.9 % (18.3-44.2); Mean Corpuscular HGB Conc 33.7 g/dl (32-36); Mean Corpuscular Hemoglobin 30.9 pg (26-34); Mean Corpuscular Volume 91.8 fl (80-100); Mean Platelet Volume 9.5 fl (7.4-10.4); Monocytes Absolute Auto 0.8 K/mm3 (0.1-0.6); Neutrophils Percent Auto 57.7 % (45.5-73.1); Platelet Count Result 198 k/mm3 (150-375); Red Blood Count 4.17 M/mm3 (4.6-6.20); White Blood Count 8.6 K/mm3 (4.5-10.0)
--- NOTE | 2024-12-04 23:36 | ED.GIBLEED ---
HPI - GI Bleed General Chief complaint: GI Bleed Stated complaint: Blood in stool since lunchtime x 3-denies pain Time Seen by Provider: 12/04/24 23:12 History of Present Illness HPI Narrative: 64-year-old male with a past medical history and hypertension and coronary artery disease with a single stent. Patient presents to the emergency room with chief complaint of bright red blood per rectum several times today. Patient states he was going but is day normally when he suddenly had the urgency to go the bathroom after lunch. He knows that he had a voluminous bowel movement of mostly blood with at next stool. Did not have any pain with this and then had several more episodes of this throughout the day. He had a recent colonoscopy several years ago that showed internal hemorrhoids as well as diverticular without any abscess or bleeding as well as some colonic polyps. Patient has not had any history of any inflammatory or infectious bowel disease in the past, no signs or symptoms of fever, chills, back pain, abdominal pain, pelvic pain, difficulty urinating, chest pain, shortness a breath. Denies any recent travel or injury. No history of recent hospitalizations or sick contacts. He was otherwise in his normal state of health. Presently has no pain. Patient denies any anal receptive intercourse, no painful external hemorrhoids or rectal pain or pressure. Related Data Home Medications ?Medication ?Instructions ?Recorded ?Confirmed ?Last Taken ?Type aspirin 81 mg tablet,delayed 81 mg PO DAILY 01/18/21 02/16/24 Unknown History release (Adult Aspirin Regimen) ezetimibe 10 mg tablet 10 mg PO DAILY 01/21/22 02/16/24 Unknown History Allergies Allergy/AdvReac Type Severity Reaction Status Date / Time Sulfa (Sulfonamide Allergy Intermediate Hives Verified 12/04/24 19:31 Antibiotics) Review of Systems Review of Systems: As reviewed above in HPI [facility] Past Medical History Medical History CAD (coronary artery disease) Hypertension Surgical History Surgical History History of coronary artery stent placement Stented coronary artery Family History Family History Sibling Patient's brother is in good health Mother Family history of elevated blood lipids Father Family history of lung cancer Patient's father is Social History Social History Smoking status: Never smoker Alcohol intake: current Drinks per week: 5 Substance use: former Substance use type: marijuana Other substance usage details: occasionally Living arrangements: alone Gender identity (if verbalized by the patient): Male Spiritual care concerns: No Exam Narrative: GENERAL: [Well-appearing, well-nourished, and in no acute distress.] HEAD: [Normocephalic, atraumatic.] EYES: [PERRLA and EOMI.] ENT: Nares clear, no rhinorrhea or epistaxis. Mucous membranes moist. NECK: Supple. CHEST: [Clear to auscultation. No respiratory distress.] HEART: [Regular rate and rhythm]. No murmur heard. [Normal peripheral pulses.] ABDOMEN: [Soft, nondistended], [nontender], [No rigidity or guarding] EXTREMITIES: Normal range of motion. [No edema.] Rectal examination deferred. SKIN: Warm, dry, no rash. NEURO: [No focal deficits]. Alert and oriented [x3.] PSYCH: [Normal mood and affect.] Course Vital Signs Vital signs: Vital Signs Temperature 37.2 C 12/04/24 19:40 Pulse Rate 60 12/04/24 19:40 Respiratory Rate 18 12/04/24 19:40 Blood Pressure 153/87 H 12/04/24 19:40 Pulse Oximetry 96 12/04/24 19:40 Oxygen Delivery Room Air 12/04/24 19:40 Temperature 36.8 C 12/04/24 22:29 Pulse Rate 75 12/05/24 02:13 Respiratory Rate 15 12/05/24 02:13 Blood Pressure 124/74 12/05/24 02:13 Pulse Oximetry 100 12/05/24 02:13 Oxygen Delivery Room Air 12/04/24 19:40 MDM - GI Bleed MDM Narrative Medical decision making narrative: 64-year-old male with history of hypertension coronary artery disease presenting to the emergency depart with painless bright red blood per rectum. He states that he suddenly had the urgency to go the bathroom and had a voluminous bowel movement with bright red blood earlier today. He had several episodes of this but each time was associated with no pain or other symptoms. Presently patient is asymptomatic but states that he can go up to use the bathroom again. Denies any abdominal pain, pelvic pain, fever, chills, chest pain, back pain. He has a soft nontender nondistended abdomen with normal vital signs with any tachycardia, fever, hypoxia. He does have a history of recent colonoscopy several years ago here at the facility that showed internal hemorrhoids and diverticula as well as some polyps. No history of infectious or inflammatory bowel disease. No recent travel. Considerations presently are for bleeding internal hemorrhoid, bleeding diverticula, low suspicion AVM or ischemic/inflammatory bowel disease/gastroenteritis, proctitis. Laboratory studies were obtained including CBC, CMP, lipase, lactic acid, PT, PTT, type and screen. A CT scan with IV contrast GI bleed study was ordered. Patient placed on monitoring engineer and frequently re-evaluated. Patient CT scan results showed no acute findings aside from some diverticulosis without acute diverticulitis. I went and re-evaluated the patient who had several more bloody bowel movements and provided me picture evidence. His initial hemoglobin is 12.9 which is a 3 g hemoglobin drop from around his baseline which is around 15. Repeat H&H done just 2 hours later shows an 11.9 hemoglobin which is concerning for an acute drop. I discussed this with GI on-call Dr. Herbert who was agreeable with urgent colonoscopy and evaluation on inpatient basis. The patient is otherwise hemodynamically stable and not having any acute pain on my repeat evaluations which was reassuring but he will be admitted for inpatient GI evaluation and potential endoscopy. Discussed the case with the night hospitalist Dr. Mejias who agreed for telemetry monitored bed admission at this time patient comfortable with admission plan and stable. Medical Records Attestation: I reviewed the patient's medical records. Lab Data Attestation: I reviewed the patient's lab results. 12/05/24 03:57 12/04/24 23:23 Labs: Lab Results 12/04/24 12/04/24 12/05/24 Range/Units 23:23 23:46 02:11 WBC 8.6 (4.5-10.0) K/mm3 RBC 4.17 L (4.6-6.20) M/mm3 Hgb 12.9 L 11.9 L (14.0-18.0) g/dL Hct 38.3 L 35.3 L (42.0-52.0) % MCV 91.8 (80-100) fl MCH 30.9 (26-34) pg MCHC 33.7 (32-36) g/dl RDW 12.0 (11.5-14.5) % Plt Count 198 (150-375) k/mm3 MPV 9.5 (7.4-10.4) fl Immature Gran % (Auto) 0.2 (0-0.5) % Neut % (Auto) 57.7 (45.5-73.1) % Lymph % (Auto) 30.9 (18.3-44.2) % Nobles % (Auto) 9.0 H (2.6-8.5) % Eos % (Auto) 1.8 (0-4.4) % Baso % (Auto) 0.4 (0.2-1.2) % Lymph # (Auto) 2.65 (0.9-3.2) K/mm3 Nobles # (Auto) 0.8 H (0.1-0.6) K/mm3 Eos # (Auto) 0.2 (0-0.3) K/mm3 Baso # (Auto) 0.0 (0.0-0.1) K/mm3 Abs Immat Gran (auto) 0.02 (0.00-0.031) K/mm3 Absolute Neuts (auto) 5.0 (1.3-6.7) K/mm3 Absolute Nucleated RBC 0.000 (0.0-0.012) K/mm3 Nucleated RBC % 0.0 (0.0-0.2) % PT 13.8 (11.1-14.7) Seconds INR 1.0 APTT 29.5 (22.3-36.8) Seconds Sodium 136 L (137-145) mmol/L Potassium 4.1 (3.4-5.0) mmol/L Chloride 104 (98-107) mmol/L Carbon Dioxide 28 (22-30) mmol/L Anion Gap 4 (4-12) mmol/L BUN 26 H (9-20) mg/dL Creatinine 0.66 L (0.7-1.3) mg/dL Estim Creat Clear Calc 90 ml/min Estimated GFR > 60 (59 - ) Glucose 90 (65-110) mg/dL Lactic Acid 1.1 (0.7-2.0) mmol/L Calcium 8.6 (8.4-10.2) mg/dL Magnesium 1.9 (1.6-2.3) mg/dL Total Bilirubin 0.6 (0.2-1.3) mg/dL AST 32 (17-59) U/L ALT 32 (6-50) U/L Alkaline Phosphatase 79 (38-126) U/L Total Protein 6.0 L (6.3-8.2) g/dL Albumin 3.7 (3.5-5.1) g/dL Blood Type O Positive Antibody Screen Negative 12/05/24 Range/Units 03:57 WBC (4.5-10.0) K/mm3 RBC (4.6-6.20) M/mm3 Hgb 11.8 L (14.0-18.0) g/dL Hct 35.0 L (42.0-52.0) % MCV (80-100) fl MCH (26-34) pg MCHC (32-36) g/dl RDW (11.5-14.5) % Plt Count (150-375) k/mm3 MPV (7.4-10.4) fl Immature Gran % (Auto) (0-0.5) % Neut % (Auto) (45.5-73.1) % Lymph % (Auto) (18.3-44.2) % Nobles % (Auto) (2.6-8.5) % Eos % (Auto) (0-4.4) % Baso % (Auto) (0.2-1.2) % Lymph # (Auto) (0.9-3.2) K/mm3 Nobles # (Auto) (0.1-0.6) K/mm3 Eos # (Auto) (0-0.3) K/mm3 Baso # (Auto) (0.0-0.1) K/mm3 Abs Immat Gran (auto) (0.00-0.031) K/mm3 Absolute Neuts (auto) (1.3-6.7) K/mm3 Absolute Nucleated RBC (0.0-0.012) K/mm3 Nucleated RBC % (0.0-0.2) % PT (11.1-14.7) Seconds INR APTT (22.3-36.8) Seconds Sodium (137-145) mmol/L Potassium (3.4-5.0) mmol/L Chloride (98-107) mmol/L Carbon Dioxide (22-30) mmol/L Anion Gap (4-12) mmol/L BUN (9-20) mg/dL Creatinine (0.7-1.3) mg/dL Estim Creat Clear Calc ml/min Estimated GFR (59 - ) Glucose (65-110) mg/dL Lactic Acid (0.7-2.0) mmol/L Calcium (8.4-10.2) mg/dL Magnesium (1.6-2.3) mg/dL Total Bilirubin (0.2-1.3) mg/dL AST (17-59) U/L ALT (6-50) U/L Alkaline Phosphatase (38-126) U/L Total Protein (6.3-8.2) g/dL Albumin (3.5-5.1) g/dL Blood Type Antibody Screen Imaging Data Attestation: I personally reviewed and interpreted this imaging study as follows: My impression: No active extravasation, no acute process. Diverticulosis Critical Care Time Critical Care Time Critical Care Time: Yes Total Critical Care Time: 35 Discharge Plan Discharge Clinical Impression: Acute lower gastrointestinal bleeding, Hemorrhoids, internal, Diverticulosis Patient Disposition: Still a Patient Condition: Stable Patient Language: Kinyarwanda Prescriptions: No Action doxycycline monohydrate 100 mg tablet 100 mg PO BID Qty: 14 0RF aspirin [Adult Aspirin Regimen] 81 mg tablet,delayed release (DR/EC) 81 mg PO DAILY ezetimibe 10 mg tablet 10 mg PO DAILY rosuvastatin 40 mg tablet 40 mg PO DAILY Qty: 90 1RF metoprolol succinate 25 mg tablet extended release 24 hr 25 mg PO DAILY Qty: 1 0RF prednisone 20 mg tablet 40 mg PO DAILY Qty: 10 0RF albuterol-budesonide 90-80 mcg/actuation HFA aerosol inhaler 2 inh inhalation DAILY Qty: 10.7 0RF Rx Instructions: as a single dose before workouts; may repeat up to 6 doses per day (12 inhalations) Follow-up/Referrals: Luke Magaña MD [Primary Care Provider] - Time of Disposition: 03:35
[2024-12-04 23:37] LABS: Alanine Aminotransferase 32 U/L (6-50); Albumin Level 3.7 g/dL (3.5-5.1); Alkaline Phosphatase 79 U/L (38-126); Anion Gap 4 mmol/L (4-12); Aspartate Amino Transferase 32 U/L (17-59); Bilirubin,Total 0.6 mg/dL (0.2-1.3); Blood Urea Nitrogen 26 mg/dL (9-20); Calcium 8.6 mg/dL (8.4-10.2); Carbon Dioxide 28 mmol/L (22-30); Chloride 104 mmol/L (98-107); Estimated CRCL calculation 90 ml/min; Estimated Glomerular Filt Rate > 60; Glucose 90 mg/dL (65-110); Magnesium 1.9 mg/dL (1.6-2.3); Potassium 4.1 mmol/L (3.4-5.0); Sodium 136 mmol/L (137-145)
[2024-12-04 23:39] LABS: Prothrombin Time 13.8 Seconds (11.1-14.7)
[2024-12-04 23:40] LABS: Partial Thromboplastin Time 29.5 Seconds (22.3-36.8)
--- OUTSIDE RECORDS SUMMARY | 2024-12-04 23:54 | XMS_ITS | Referral Summary ---
Author Organization [facility] [address] Address [address] [place] [address] Care Team Providers Care Manager Strategy & Account Name Role Phone Luke Magaña MD Primary Care Provider [phone] Allergies Active Allergy Reactions Criticality Noted Date [...] Plan of Treatment Not on file Insurance [facility] H[facility]PP[facility] Address: [address] [address] [facility]PPO Address: [address] [address] Care Teams Manager Strategy & Account Relationship Specialty Start Date End Date Luke Magaña MD PCP - General Family Practice 01/18/23
--- OUTSIDE RECORDS SUMMARY | 2024-12-04 23:54 | XMS_ITS | Clinical Summary ---
Author Organization [facility] [address] Address [address] [place] [address] Care Team Providers Care Shift Lab Technician Name Role Phone Luke Magaña MD Primary Care Provider [phone] Allergies Active Allergy Reactions Criticality Noted Date [...] patient's age to complete this topic Insurance [facility] Care Teams Shift Lab Technician Relationship Specialty Start Date End Date Luke Magaña MD PCP - General Family Practice 01/18/23
--- OUTSIDE RECORDS SUMMARY | 2024-12-04 23:54 | XMS_ITS | Clinical Summary ---
Author Organization [facility] Address [address], [address] [address] Phone Care Team Providers Care Assistant Loan Processor Name Role Phone Dayday Lane MD Primary Care Provider [phone] Arun Carrasco DO Unavailable [phone] Medications polyethylene glycol (MIRALAX) Powder Mix [...] Most Recently Relevant to Health Maintenance [place] [address] [place] [address] Care Teams Assistant Loan Processor Relationship Specialty Start Date End Date Dayday Lane MD [address] [place] [address] PCP - General Internal Medicine 06/09/15 Arun Carrasco DO [address] [place] [address] Gastroenterology 08/06/15
[2024-12-05] VITALS (11 sets, daily range): BP systolic 121–140; BP diastolic 70–76; PULSE 68–85; RESP 14–20; TEMP 35.9–36.6; O2SAT 98–100; BMI 22.9
[2024-12-05 00:05] LABS: Lactic Acid Reflex 1.1 mmol/L (0.7-2.0)
[2024-12-05 02:17] LABS: Hematocrit 35.3 % (42.0-52.0); Hemoglobin 11.9 g/dL (14.0-18.0)
[2024-12-05] MEDS: LACTATED RINGERS 1,000 ML 100 ML IV CONT ×2 (03:37→16:53)
[2024-12-05 04:07] LABS: Hemoglobin 11.8 g/dL (14.0-18.0)
--- NOTE | 2024-12-05 05:23 | ADMGEN ---
This patient, Tawanda Arenas, was admitted to 3 [facility] Surg Room 325-02. Patient/family oriented to hospital policies and general routines including ID bracelet, bed and alarms, visiting hours, pain management, procedures, bathroom and other care routines, personal items, smoking policy, room service/diet, and visiting hours. Information on how to activate the Rapid Response Team has been discussed. Patient/Family are encouraged to report perceived risks to care and to ask questions if they do not understand what they are told or what they should do.
--- NOTE | 2024-12-05 06:24 | P.HP_ITS ---
H&P: HPI History of Present Illness Date/Time: 12/05/24 06:24 Chief Complaint: Bloody stool Narrative: This is a very pleasant 64-year-old male with a history of internal hemorrhoids, diverticulosis, hypertension, CAD status post stent x1 who presents with sudden onset of bloody stool around noon time on 12/04/2024. Patient then presented to [place] ER. Hemodynamically stable, significant drop in his hemoglobin from his baseline around 15-12.9 and then 11.[address] abdomen pelvis with contrast did not demonstrate any acute abnormalities. While in the ER he had another bowel movement with blood. Patient denied pain nausea or vomiting. Denies fever. Denied recent travel. Denies syncope. He is compliant with his medications including aspirin and rosuvastatin. Last colonoscopy was in 06/[address] Orellana demonstrating diverticulosis and internal hemorrhoids without active bleeding. Review of Systems Review of Systems: All systems reviewed & are unremarkable except as noted in HPI and below (HPI) PMFSH Past Medical History Medical History CAD (coronary artery disease) Hypertension Surgical History Surgical History History of coronary artery stent placement Stented coronary artery Family History Family History Sibling Patient's brother is in good health Mother Family history of elevated blood lipids Father Family history of lung cancer Patient's father is Social History Social History Smoking status: Never smoker Second hand tobacco smoke exposure: Yes Alcohol intake: current Drinks per week: 3 Do You Feel Safe in your Home?: Yes Lack of Transportation: No Lack of Food: Never True Current Housing: I Have Housing Concerned About Future Housing: No Difficulty Paying Gas/Electric Bills: No Difficulty Paying for Meds: No Currently Unemployed: No Education: Associate Degree Difficulty w/ Childcare or Family Care: No Living arrangements: alone Gender identity (if verbalized by the patient): Male Spiritual care concerns: No Meds Home Medications and Allergies Home Medications ?Medication ?Instructions ?Recorded ?Confirmed ?Type aspirin 81 mg tablet,delayed 81 mg PO DAILY 01/18/21 12/05/24 History release (Adult Aspirin Regimen) ezetimibe 10 mg tablet 10 mg PO DAILY 01/21/22 12/05/24 History metoprolol succinate 25 mg 25 mg PO DAILY #1 tablet 11/15/22 12/05/24 Rx tablet,extended release 24 hr rosuvastatin 40 mg tablet 40 mg PO DAILY #90 tabs 01/27/23 12/05/24 Rx albuterol 90 mcg-budesonide 80 2 inh inhalation DAILY wheezing 03/12/24 12/05/24 Rx mcg/actuation HFA aerosol inhaler congestion #10.7 grams Allergies Allergy/AdvReac Type Severity Reaction Status Date / Time Sulfa (Sulfonamide Allergy Intermediate Hives Verified 12/04/24 19:31 Antibiotics) Vital Signs Vital Signs - 24 hr 12/04/24 19:40 12/04/24 22:29 12/05/24 02:13 Temperature 98.9 F 98.2 F Pulse Rate 60 67 75 Respiratory Rate 18 15 Blood Pressure 153/87 H 140/79 124/74 Pulse Oximetry 96 100 100 Oxygen Delivery Room Air 12/05/24 05:52 Temperature 96.7 F L Pulse Rate 74 Respiratory Rate 17 Blood Pressure 126/71 Pulse Oximetry 99 Oxygen Delivery Exam Const: General: comfortable and no acute distress HENMT: Mouth: Yes moist mucous membranes Eyes: Pupils: Equal, round and reactive pupils present Neck: Neck: supple Resp: Effort & Inspection: normal respiratory effort Auscultation: clear to auscultation bilaterally Cardio: Rate: regular rate Rhythm: regular rhythm GI: GI Palp: Yes Soft to palpation Neuro: Motor exam (neuro): 5/5 motor strength present throughout Extrem: General: no edema H&P: Results Labs Labs: Short CBC 12/04/24 12/05/24 12/05/24 Range/Units 23:23 02:11 03:57 WBC 8.6 (4.5-10.0) K/mm3 Hgb 12.9 L 11.9 L 11.8 L (14.0-18.0) g/dL Hct 38.3 L 35.3 L 35.0 L (42.0-52.0) % Plt Count 198 (150-375) k/mm3 [facility] 12/04/24 23:23 Sodium 136 L Potassium 4.1 Chloride 104 Carbon Dioxide 28 BUN 26 H Creatinine 0.66 L Glucose 90 Calcium 8.6 Liver Function 12/04/24 Range/Units 23:23 Total Bilirubin 0.6 (0.2-1.3) mg/dL AST 32 (17-59) U/L ALT 32 (6-50) U/L Alkaline Phosphatase 79 (38-126) U/L Albumin 3.7 (3.5-5.1) g/dL Assessment and Plan Assessment and plan (1) Acute lower gastrointestinal bleeding: Code(s): K92.2 - Gastrointestinal hemorrhage, unspecified Status: Acute Plan GI consulted from ER. Anticipate colonoscopy. Currently NPO. Continue to trend hemoglobin. Patient is hemodynamically stable. Continue with lactated Ringer's at 100 cc/hour. Full code. SCDs. Hospitalist MIPS Advance Care Plan I have confirmed that the patient's Advanced Care Plan is present, code status is documented, or surrogate decision maker is listed in patient medical record.: Yes Medication Reconciliation I have utilized all available resources to obtain, update and review the patients current medications (includes all prescriptions, OTC, herbals, cannabis, and nutritional supplements).: Yes
[2024-12-05 07:28] LABS: Basophils Percent Auto 0.3 % (0.2-1.2); Eosinophils Absolute Auto 0.1 K/mm3 (0-0.3); Eosinophils Percent Auto 1.2 % (0-4.4); Hematocrit 38.3 % (42.0-52.0); Hemoglobin 12.9 g/dL (14.0-18.0); Immature Granulocyte Absolute 0.01 K/mm3 (0.00-0.031); Immature Granulocyte Percent A 0.2 % (0-0.5); Lymphocytes Absolute Auto 1.49 K/mm3 (0.9-3.2); Lymphocytes Percent Auto 25.2 % (18.3-44.2); Mean Corpuscular HGB Conc 33.7 g/dl (32-36); Mean Corpuscular Hemoglobin 30.8 pg (26-34); Mean Corpuscular Volume 91.4 fl (80-100); Mean Platelet Volume 9.8 fl (7.4-10.4); Monocytes Absolute Auto 0.4 K/mm3 (0.1-0.6); Monocytes Percent Auto 7.3 % (2.6-8.5); Neutrophils Absolute Auto 3.9 K/mm3 (1.3-6.7); Neutrophils Percent Auto 65.8 % (45.5-73.1); Platelet Count Result 205 k/mm3 (150-375); Red Blood Count 4.19 M/mm3 (4.6-6.20); White Blood Count 5.9 K/mm3 (4.5-10.0)
[2024-12-05 07:32] LABS: Alanine Aminotransferase 31 U/L (6-50); Albumin Level 3.7 g/dL (3.5-5.1); Alkaline Phosphatase 82 U/L (38-126); Anion Gap 7 mmol/L (4-12); Aspartate Amino Transferase 30 U/L (17-59); Bilirubin,Total 0.8 mg/dL (0.2-1.3); Blood Urea Nitrogen 23 mg/dL (9-20); Calcium 8.6 mg/dL (8.4-10.2); Carbon Dioxide 25 mmol/L (22-30); Chloride 105 mmol/L (98-107); Estimated CRCL calculation 106 ml/min; Estimated Glomerular Filt Rate > 60; Glucose 91 mg/dL (65-110); Magnesium 1.9 mg/dL (1.6-2.3); Potassium 4.2 mmol/L (3.4-5.0); Sodium 137 mmol/L (137-145)
[2024-12-05 08:13] LABS: Prothrombin Time 13.7 Seconds (11.1-14.7)
--- OUTSIDE RECORDS SUMMARY | 2024-12-05 08:38 | XMS_ITS | Clinical Summary ---
Author Organization [facility] [address] Address [address] [place] [address] Care Team Providers Care Heel Cutter Name Role Phone Luke Magaña MD Primary Care Provider [phone] Allergies Active Allergy Reactions Criticality Noted Date [...] patient's age to complete this topic Insurance [facility] Care Teams Heel Cutter Relationship Specialty Start Date End Date Luke Magaña MD PCP - General Family Practice 01/18/23
--- OUTSIDE RECORDS SUMMARY | 2024-12-05 08:38 | XMS_ITS | Clinical Summary ---
Author Organization [facility] Address [address], [address] [address] Phone Care Team Providers Care E Commerce Specialist Name Role Phone Dayday Lane MD Primary Care Provider [phone] Arun Carrasco DO Unavailable [phone] Medications polyethylene glycol (MIRALAX) Powder Mix [...] Most Recently Relevant to Health Maintenance [place] [address] [place] [address] [place] [address] Care Teams E Commerce Specialist Relationship Specialty Start Date End Date Dayday Lane MD [address] [place] [address] PCP - General Internal Medicine 06/09/15 Arun Carrasco DO [address] [place] [address] Gastroenterology 08/06/15
--- OUTSIDE RECORDS SUMMARY | 2024-12-05 08:38 | XMS_ITS | Referral Summary ---
Author Organization [facility] [address] Address [address] [place] [address] Care Team Providers Care Group Rooms Coordinator Name Role Phone Luke Magaña MD Primary Care Provider [phone] Allergies Active Allergy Reactions Criticality Noted Date [...] of Treatment Not on file Insurance [facility] H[facility]/PPO Address: [address] [address] [facility] H[facility]/PPO Address: [address] [address] Care Teams Group Rooms Coordinator Relationship Specialty Start Date End Date Luke Magaña MD PCP - General Family Practice 01/18/23
--- NOTE | 2024-12-05 09:48 | P.CONGI_ITS ---
Assessment and Plan Assessment and plan (1) Acute lower gastrointestinal bleeding: Code(s): K92.2 - Gastrointestinal hemorrhage, unspecified Status: Acute Assessment and Plan: The most likely cause of this episodes of rectal bleeding is diverticulosis, given his decrease in hematocrit. Will start clear liquids today and prep for colonoscopy tomorrow. GI Consult Note Consult date/time: 12/05/24 09:48 Reason for consult: Rectal bleeding HPI: Tawanda Arenas, a 64-year-old male with a history of hypertension and coronary artery disease (post-stent placement), was admitted last night after experiencing multiple bloody stools and clots yesterday afternoon. He denies weakness or dizziness, and has no prior history of diarrhea or abdominal pain. A colonoscopy in 2021 revealed diverticulosis and hemorrhoids. His hemoglobin dropped from 15.6 in April 2024 to 11.8 last night, motivating admission for observation and possible colonoscopy. Review of Systems 2 Review of Systems: All systems reviewed & are unremarkable except as noted in HPI and below PMFSH Past Medical History Medical History CAD (coronary artery disease) Hypertension Surgical History Surgical History History of coronary artery stent placement Stented coronary artery Family History Family History Sibling Patient's brother is in good health Mother Family history of elevated blood lipids Father Family history of lung cancer Patient's father is Social History Social History Smoking status: Never smoker Second hand tobacco smoke exposure: Yes Alcohol intake: current Drinks per week: 3 Do You Feel Safe in your Home?: Yes Lack of Transportation: No Lack of Food: Never True Current Housing: I Have Housing Concerned About Future Housing: No Difficulty Paying Gas/Electric Bills: No Difficulty Paying for Meds: No Currently Unemployed: No Education: Associate Degree Difficulty w/ Childcare or Family Care: No Living arrangements: alone Gender identity (if verbalized by the patient): Male Spiritual care concerns: No Meds Home Medications and Allergies Home Medications ?Medication ?Instructions ?Recorded ?Confirmed ?Type aspirin 81 mg tablet,delayed 81 mg PO DAILY 01/18/21 12/05/24 History release (Adult Aspirin Regimen) ezetimibe 10 mg tablet 10 mg PO DAILY 01/21/22 12/05/24 History metoprolol succinate 25 mg 25 mg PO DAILY #1 tablet 11/15/22 12/05/24 Rx tablet,extended release 24 hr rosuvastatin 40 mg tablet 40 mg PO DAILY #90 tabs 01/27/23 12/05/24 Rx albuterol 90 mcg-budesonide 80 2 inh inhalation DAILY wheezing 03/12/24 12/05/24 Rx mcg/actuation HFA aerosol inhaler congestion #10.7 grams Allergies Allergy/AdvReac Type Severity Reaction Status Date / Time Sulfa (Sulfonamide Allergy Intermediate Hives Verified 12/04/24 19:31 Antibiotics) Vital Signs Vital Signs - 24 hr 12/04/24 19:40 12/04/24 22:29 12/05/24 02:13 Temperature 98.9 F 98.2 F Pulse Rate 60 67 75 Respiratory Rate 18 15 Blood Pressure 153/87 H 140/79 124/74 Pulse Oximetry 96 100 100 Oxygen Delivery Room Air 12/05/24 05:52 12/05/24 06:28 12/05/24 06:28 Temperature 96.7 F L Pulse Rate 74 84 84 Respiratory Rate 17 17 Blood Pressure 126/71 Pulse Oximetry 99 99 Oxygen Delivery Room Air 12/05/24 09:19 Temperature Pulse Rate Respiratory Rate Blood Pressure Pulse Oximetry 98 Oxygen Delivery Room Air Exam 2 Const: General: cooperative and healthy appearing Resp: Effort & Inspection: normal respiratory effort and able to speak in complete sentences Auscultation: clear to auscultation bilaterally Cardio: Rate: regular rate Rhythm: regular rhythm GI: Inspection: normal to inspection GI Palp: No No hepatosplenomegaly present Auscultation: normal bowel sounds Rectal Exam: deferred Skin: General skin exam: normal color Psych: Appearance: grossly normal Mental Status: mental status grossly normal Results Labs 12/05/24 06:59 12/05/24 06:59 Labs: Short CBC 12/04/24 12/05/24 12/05/24 Range/Units 23:23 02:11 03:57 WBC 8.6 (4.5-10.0) K/mm3 Hgb 12.9 L 11.9 L 11.8 L (14.0-18.0) g/dL Hct 38.3 L 35.3 L 35.0 L (42.0-52.0) % Plt Count 198 (150-375) k/mm3 12/05/24 Range/Units 06:59 WBC 5.9 (4.5-10.0) K/mm3 Hgb 12.9 L (14.0-18.0) g/dL Hct 38.3 L (42.0-52.0) % Plt Count 205 (150-375) k/mm3 BMP 12/04/24 12/05/24 23:23 06:59 Sodium 136 L 137 Potassium 4.1 4.2 Chloride 104 105 Carbon Dioxide 28 25 BUN 26 H 23 H Creatinine 0.66 L 0.55 L Glucose 90 91 Calcium 8.6 8.6 Liver Function 12/04/24 12/05/24 Range/Units 23:23 06:59 Total Bilirubin 0.6 0.8 (0.2-1.3) mg/dL AST 32 30 (17-59) U/L ALT 32 31 (6-50) U/L Alkaline Phosphatase 79 82 (38-126) U/L Albumin 3.7 3.7 (3.5-5.1) g/dL
--- NOTE | 2024-12-05 14:38 | P.PNIM_ITS ---
Progress Note: A&P Assessment and Plan (1) Acute lower gastrointestinal bleeding: Code(s): K92.2 - Gastrointestinal hemorrhage, unspecified Status: Acute Assessment and Plan: * GI consulted from ER. * Colonoscopy planned for the am * NPO after MN. * H/H 12.9/38.3 * Continue to trend hemoglobin. * Patient is hemodynamically stable. * Continue with lactated Ringer's at 100 cc/hour. * Colon prep tonight * Trend H/H (2) Hypertension: Code(s): I10 - Essential (primary) hypertension Status: Acute Assessment and Plan: * Current BP 126/71 * not currently on home medications * Trend Blood pressure * Adjust therapy as indicated (3) Hyperlipidemia: Qualifiers: Hyperlipidemia type: other hyperlipidemia Qualified Code(s): E78.49 - Other hyperlipidemia Code(s): E78.5 - Hyperlipidemia, unspecified Status: Acute Assessment and Plan: * continue home rosuvastatin (4) Acute blood loss anemia: Code(s): D62 - Acute posthemorrhagic anemia Status: Acute Assessment and Plan: * hemoglobin hematocrit noted to be 12.9/30.3 * H&H in April was 15.6/46.5 * colonoscopy scheduled for tomorrow * trend labs * consider anemia labs * transfusing if hemoglobin is less than 7 Subjective Date/time seen: 12/05/24 14:38 Interval history: 12/05/24 patient is lying in bed. Patient states he still has some her blood coming out of stool and did state that his stools were diarrhea drain to solid. He denies any current chest pain, shortness a breath, nausea, vomiting, diarrhea, fevers, sweats, chills. He did state that he uses pretty tired. Scope was plan for tomorrow 12/05/24 This is a very pleasant 64-year-old male with a history of internal hemorrhoids, diverticulosis, hypertension, CAD status post stent x1 who presents with sudden onset of bloody stool around noon time on 12/04/2024. Patient then presented to [place] ER. Hemodynamically stable, significant drop in his hemoglobin from his baseline around 15-12.9 and then 11.[address] abdomen pelvis with contrast did not demonstrate any acute abnormalities. While in the ER he had another bowel movement with blood. Patient denied pain nausea or vomiting. Denies fever. Denied recent travel. Denies syncope. He is compliant with his medications including aspirin and rosuvastatin. Last colonoscopy was in 06/[address] Orellana demonstrating diverticulosis and internal hemorrhoids without active bleeding. Review of Systems Review of Systems: All systems reviewed & are unremarkable except as noted in HPI and below Exam Narrative: General: well-nourished, tired-appearing 64-year-old male, sitting up in bed, comfortable, NARD Neuro: awake, alert and oriented x4, speech clear, no focal neuro deficits noted HEENMT: normocephalic, atraumatic, EOMI, sclerae anicteric, moist oral mucosa Respiratory: Clear to auscultation bilaterally without crackles, rhonchi or wheezes, nonlabored breathing Cardio: regular rate, regular rhythm with S1-S2 Abdomen: nondistended, normoactive bowel sounds, soft, nontender to palpation Extremities: no edema, erythema, or tenderness to palpation, DP pulses 2+ bilaterally Skin: no rashes or lesions, warm and dry Psych: appropriate mood and affect, judgment and insight intact Objective Data Vital Signs Vital Signs: Vital Signs - 24 hr 12/04/24 19:40 12/04/24 22:29 12/05/24 02:13 Temperature 98.9 F 98.2 F Pulse Rate 60 67 75 Respiratory Rate 18 15 Blood Pressure 153/87 H 140/79 124/74 Pulse Oximetry 96 100 100 Oxygen Delivery Room Air 12/05/24 05:52 12/05/24 06:28 12/05/24 06:28 Temperature 96.7 F L Pulse Rate 74 84 84 Respiratory Rate 17 17 Blood Pressure 126/71 Pulse Oximetry 99 99 Oxygen Delivery Room Air 12/05/24 08:00 12/05/24 09:19 Temperature Pulse Rate Respiratory Rate Blood Pressure Pulse Oximetry 98 Oxygen Delivery Room Air Room Air Intake/Output Intake/Output: Intake & Output 12/02/24 12/03/24 12/04/24 12/05/24 23:59 23:59 23:59 23:59 Intake Total 1100 Balance 1100 Meds/Results Medications: Active Medications Generic Name Dose Route Start Last Admin Trade Name Freq PRN Reason Stop Dose Admin Acetaminophen 650 mg 12/05/24 03:00 Acetaminophen 325 Mg Tablet PO Q4H PRN Mild Pain (1-3) or Fever Lactated Ringer's 1,000 mls @ 100 mls/hr 12/05/24 03:00 12/05/24 03:37 Lr - Lactated Ringers Iv IV CONT 100 mls/hr .Q10H [facility] Administration Ondansetron HCl 4 mg 12/05/24 03:00 Ondansetron Inj 4 Mg/2 Ml Vial IV PUSH Q4H PRN Nausea Polyethylene Glycol 119 gm 12/05/24 20:00 Polyethylene Glycol 3350 238 Gm Bottle PO 12/06/24 05:01 BID@0500,2000 [facility] Radiology Results: ITS Impressions Abdomen/Pelvis CT 12/05/24 05:10 Impression: No significant abnormalities seen. Labs Labs: Laboratory Results - last 24 hr 12/04/24 12/04/24 12/05/24 23:23 23:46 02:11 WBC 8.6 RBC 4.17 L Hgb 12.9 L 11.9 L Hct 38.3 L 35.3 L MCV 91.8 MCH 30.9 MCHC 33.7 RDW 12.0 Plt Count 198 MPV 9.5 Immature Gran % (Auto) 0.2 Neut % (Auto) 57.7 Lymph % (Auto) 30.9 [place] % (Auto) 9.0 H Eos % (Auto) 1.8 Baso % (Auto) 0.4 Lymph # (Auto) 2.65 [place] # (Auto) 0.8 H Eos # (Auto) 0.2 Baso # (Auto) 0.0 Abs Immat Gran (auto) 0.02 Absolute Neuts (auto) 5.0 Absolute Nucleated RBC 0.000 Nucleated RBC % 0.0 PT 13.8 INR 1.0 APTT 29.5 Sodium 136 L Potassium 4.1 Chloride 104 Carbon Dioxide 28 Anion Gap 4 BUN 26 H Creatinine 0.66 L Estim Creat Clear Calc 90 Estimated GFR > 60 Glucose 90 Lactic Acid 1.1 Calcium 8.6 Magnesium 1.9 Total Bilirubin 0.6 AST 32 ALT 32 Alkaline Phosphatase 79 Total Protein 6.0 L Albumin 3.7 Blood Type O Positive Antibody Screen Negative 12/05/24 12/05/24 03:57 06:59 WBC 5.9 RBC 4.19 L Hgb 11.8 L 12.9 L Hct 35.0 L 38.3 L MCV 91.4 MCH 30.8 MCHC 33.7 RDW 12.0 Plt Count 205 MPV 9.8 Immature Gran % (Auto) 0.2 Neut % (Auto) 65.8 Lymph % (Auto) 25.2 [place] % (Auto) 7.3 Eos % (Auto) 1.2 Baso % (Auto) 0.3 Lymph # (Auto) 1.49 [place] # (Auto) 0.4 Eos # (Auto) 0.1 Baso # (Auto) 0.0 Abs Immat Gran (auto) 0.01 Absolute Neuts (auto) 3.9 Absolute Nucleated RBC 0.000 Nucleated RBC % 0.0 PT 13.7 INR 1.0 APTT Sodium 137 Potassium 4.2 Chloride 105 Carbon Dioxide 25 Anion Gap 7 BUN 23 H Creatinine 0.55 L Estim Creat Clear Calc 106 Estimated GFR > 60 Glucose 91 Lactic Acid Calcium 8.6 Magnesium 1.9 Total Bilirubin 0.8 AST 30 ALT 31 Alkaline Phosphatase 82 Total Protein 6.0 L Albumin 3.7 Blood Type Antibody Screen
[2024-12-05] MEDS: polyethylene glycoL 3350 238 GM BOTTLE 119 GM PO (21:12)
[2024-12-06] VITALS (8 sets, daily range): BP systolic 85–138; BP diastolic 49–75; PULSE 64–90; RESP 14–27; TEMP 35.8–36.8; O2SAT 100
[2024-12-06] MEDS: LACTATED RINGERS 1,000 ML 100 ML IV CONT (02:53)
[2024-12-06] MEDS: polyethylene glycoL 3350 238 GM BOTTLE 119 GM PO (05:35)
[2024-12-06 06:28] LABS: Basophils Percent Auto 0.5 % (0.2-1.2); Eosinophils Absolute Auto 0.1 K/mm3 (0-0.3); Eosinophils Percent Auto 2.4 % (0-4.4); Hematocrit 39.5 % (42.0-52.0); Hemoglobin 12.9 g/dL (14.0-18.0); Immature Granulocyte Absolute 0.02 K/mm3 (0.00-0.031); Immature Granulocyte Percent A 0.3 % (0-0.5); Lymphocytes Absolute Auto 1.68 K/mm3 (0.9-3.2); Lymphocytes Percent Auto 28.9 % (18.3-44.2); Mean Corpuscular HGB Conc 32.7 g/dl (32-36); Mean Corpuscular Hemoglobin 30.7 pg (26-34); Mean Platelet Volume 9.8 fl (7.4-10.4); Monocytes Absolute Auto 0.5 K/mm3 (0.1-0.6); Monocytes Percent Auto 9.1 % (2.6-8.5); Neutrophils Absolute Auto 3.4 K/mm3 (1.3-6.7); Neutrophils Percent Auto 58.8 % (45.5-73.1); Platelet Count Result 207 k/mm3 (150-375); Red Cell Distribution Width 12.2 % (11.5-14.5); White Blood Count 5.8 K/mm3 (4.5-10.0)
[2024-12-06 06:42] LABS: Alanine Aminotransferase 28 U/L (6-50); Albumin Level 3.8 g/dL (3.5-5.1); Alkaline Phosphatase 74 U/L (38-126); Anion Gap 7 mmol/L (4-12); Aspartate Amino Transferase 30 U/L (17-59); Bilirubin,Total 0.6 mg/dL (0.2-1.3); Blood Urea Nitrogen 10 mg/dL (9-20); Calcium 8.9 mg/dL (8.4-10.2); Carbon Dioxide 28 mmol/L (22-30); Chloride 105 mmol/L (98-107); Estimated CRCL calculation 101 ml/min; Estimated Glomerular Filt Rate > 60; Glucose 104 mg/dL (65-110); Magnesium 1.9 mg/dL (1.6-2.3); Potassium 4.1 mmol/L (3.4-5.0); Sodium 140 mmol/L (137-145)
[2024-12-06] MEDS: LACTATED RINGERS 1,000 ML 150 ML IV CONT (10:21)
--- NOTE | 2024-12-06 10:26 | P.PNAN_ITS ---
Anes - Initial Pre Proc Eval Procedure: Operation Date: 12/06/24 14:00 Proposed Procedures p Colonoscopy - Devin Soria MD Date/Time: 12/06/24 10:26 Surgeon: Hannah Mejias MD Pre Op Diagnosis: Lower GI Bleed Patient Data Age: 64 Gender: M Height: 1.68 m Weight: 64.5 kg Last Vital Signs Temp 36.8 C 12/06/24 10:18 Pulse 70 12/06/24 10:18 Resp 16 12/06/24 10:18 BP 138/75 12/06/24 10:18 Pulse Ox 100 12/06/24 10:18 O2 Del Method Room Air 12/06/24 10:18 FiO2 21 12/05/24 22:00 Allergies Allergy/AdvReac Type Severity Reaction Status Date / Time Sulfa (Sulfonamide Allergy Intermediate Hives Verified 12/06/24 10:12 Antibiotics) Home Medications ?Medication ?Instructions ?Recorded ?Confirmed ?Type aspirin 81 mg tablet,delayed 81 mg PO DAILY 01/18/21 12/05/24 History release (Adult Aspirin Regimen) ezetimibe 10 mg tablet 10 mg PO DAILY 01/21/22 12/05/24 History metoprolol succinate 25 mg 25 mg PO DAILY #1 tablet 11/15/22 12/05/24 Rx tablet,extended release 24 hr rosuvastatin 40 mg tablet 40 mg PO DAILY #90 tabs 01/27/23 12/05/24 Rx albuterol 90 mcg-budesonide 80 2 inh inhalation DAILY wheezing 03/12/24 12/05/24 Rx mcg/actuation HFA aerosol inhaler congestion #10.7 grams Laboratory Tests 12/06/24 05:57 WBC 5.8 K/mm3 (4.5-10.0) RBC 4.20 L M/mm3 (4.6-6.20) Hgb 12.9 L g/dL (14.0-18.0) Hct 39.5 L % (42.0-52.0) MCV 94.0 fl (80-100) MCH 30.7 pg (26-34) MCHC 32.7 g/dl (32-36) RDW 12.2 % (11.5-14.5) Plt Count 207 k/mm3 (150-375) MPV 9.8 fl (7.4-10.4) Immature Gran % (Auto) 0.3 % (0-0.5) Neut % (Auto) 58.8 % (45.5-73.1) Lymph % (Auto) 28.9 % (18.3-44.2) [place] % (Auto) 9.1 H % (2.6-8.5) Eos % (Auto) 2.4 % (0-4.4) Baso % (Auto) 0.5 % (0.2-1.2) Lymph # (Auto) 1.68 K/mm3 (0.9-3.2) [place] # (Auto) 0.5 K/mm3 (0.1-0.6) Eos # (Auto) 0.1 K/mm3 (0-0.3) Baso # (Auto) 0.0 K/mm3 (0.0-0.1) Abs Immat Gran (auto) 0.02 K/mm3 (0.00-0.031) Absolute Neuts (auto) 3.4 K/mm3 (1.3-6.7) Absolute Nucleated RBC 0.000 K/mm3 (0.0-0.012) Nucleated RBC % 0.0 % (0.0-0.2) Sodium 140 mmol/L (137-145) Potassium 4.1 mmol/L (3.4-5.0) Chloride 105 mmol/L (98-107) Carbon Dioxide 28 mmol/L (22-30) Anion Gap 7 mmol/L (4-12) BUN 10 D mg/dL (9-20) Creatinine 0.58 L mg/dL (0.7-1.3) Estim Creat Clear Calc 101 ml/min Estimated GFR > 60 (59 - ) Glucose 104 mg/dL (65-110) Calcium 8.9 mg/dL (8.4-10.2) Magnesium 1.9 mg/dL (1.6-2.3) Total Bilirubin 0.6 mg/dL (0.2-1.3) AST 30 U/L (17-59) ALT 28 U/L (6-50) Alkaline Phosphatase 74 U/L (38-126) Total Protein 6.0 L g/dL (6.3-8.2) Albumin 3.8 g/dL (3.5-5.1) Patient hx anesthesia problems: none Family hx anesthesia problems: none Results Review: All pre-operative results and documents have been reviewed as part of the pre- operative evaluation. [facility] Past Medical History Medical History CAD (coronary artery disease) Hypertension Surgical History Surgical History History of coronary artery stent placement Stented coronary artery Family History Family History Sibling Patient's brother is in good health Mother Family history of elevated blood lipids Father Family history of lung cancer Patient's father is Social History Social History (Updated 12/06/24 @ 10:26 by Gordon Gastelum DO) Smoking status: Never smoker Second hand tobacco smoke exposure: Yes Alcohol intake: current Drinks per week: 3 Substance use: current Substance use type: marijuana Other substance usage details: occasional Do You Feel Safe in your Home?: Yes Lack of Transportation: No Lack of Food: Never True Current Housing: I Have Housing Concerned About Future Housing: No Difficulty Paying Gas/Electric Bills: No Difficulty Paying for Meds: No Currently Unemployed: No Education: Associate Degree Difficulty w/ Childcare or Family Care: No Living arrangements: alone Gender identity (if verbalized by the patient): Male Spiritual care concerns: No Anes - Eval Final PreProcedure Day of Procedure 12/06/24 10:26 Patient weight: normal Heart: regular rate and rhythm Lungs: clear to auscultation and normal air movement Airway: Mallampati scale class III Neurological: alert and oriented Last oral intake: >/= 8 hours ASA classification: III Emergent: no Anesthetic plan: proceed Anesthesia type and monitoring: general GIVS and standard monitoring Results Review: All pre-operative results and documents have been reviewed as part of the pre-op erative evaluation. Informed Consent: The patient's anesthetic plan and its attendant risks and benefits were discussed with the patient/family/POA. Questions were solicited and answers provided to the satisfaction of the patient/family/POA.
--- NOTE | 2024-12-06 11:03 | P.DS_ITS ---
DS: Admitting Diagnosis Discharge Date 12/06/2024 1100 Admitting Diagnosis Gi bleed DS: Discharge Diagnosis Discharge Diagnosis (1) Acute lower gastrointestinal bleeding: Code(s): K92.2 - Gastrointestinal hemorrhage, unspecified Status: Acute Assessment and Plan: * GI consulted from ER. * Colonoscopy planned for the am * NPO after MN. * H/H 12.9/38.3 * Continue to trend hemoglobin. * Patient is hemodynamically stable. * Continue with lactated Ringer's at 100 cc/hour. * Colon prep tonight * Trend H/H (2) Hypertension: Code(s): I10 - Essential (primary) hypertension Status: Acute Assessment and Plan: * Current BP 126/71 * not currently on home medications * Trend Blood pressure * Adjust therapy as indicated (3) Hyperlipidemia: Qualifiers: Hyperlipidemia type: other hyperlipidemia Qualified Code(s): E78.49 - Other hyperlipidemia Code(s): E78.5 - Hyperlipidemia, unspecified Status: Acute Assessment and Plan: * continue home rosuvastatin (4) Acute blood loss anemia: Code(s): D62 - Acute posthemorrhagic anemia Status: Acute Assessment and Plan: * hemoglobin hematocrit noted to be 12.9/30.3 * H&H in April was 15.6/46.5 * colonoscopy scheduled for tomorrow * trend labs * consider anemia labs * transfusing if hemoglobin is less than 7 DS: Summary Hospital Course Reason for hospitalization: This is a very pleasant 64-year-old male with a history of internal hemorrhoids, diverticulosis, hypertension, CAD status post stent x1 who presents with sudden onset of bloody stool around noon time on 12/04/2024. Patient then presented to [place] ER. Hemodynamically stable, significant drop in his hemoglobin from his baseline around 15-12.9 and then 11.[address] abdomen pelvis with contrast did not demonstrate any acute abnormalities. While in the ER he had another bowel movement with blood. Patient denied pain nausea or vomiting. Denies fever. Denied recent travel. Denies syncope. He is compliant with his medications including aspirin and rosuvastatin. Last colonoscopy was in 06/[address] Orellana demonstrating diverticulosis and internal hemorrhoids without active bleeding. Hospital Course: Patient was seen by GI who did a colonoscopy. No findings to suggest continued bleeding. Patient will need to undergo a colonoscopy in 5 years. H/H stable at 12.9/39.5. Instructed to avoid NSAIDS. Patient currently denies any chest pain, shortness of breath, nausea, vomiting, diarrhea, constipation, fevers, sweats, or chills. He denies any current bleeding. At this time patient is stable for discharge per labs and vital signs. Instructed that he will need to return with any further signs or symptoms of bleeding. Patient verbalizes understanding. Status at Discharge Functional status at discharge: independent ambulation Overall status at discharge: patient is progressing back to baseline Time Spent with Patient Time attestation: Total time spent providing and/or coordinating discharge services: 52 minutes Time spent: Greater than 30 minutes Exam Narrative: General: well-nourished, tired-appearing 64-year-old male, sitting up in bed, comfortable, NARD Neuro: awake, alert and oriented x4, speech clear, no focal neuro deficits noted HEENMT: normocephalic, atraumatic, EOMI, sclerae anicteric, moist oral mucosa Respiratory: Clear to auscultation bilaterally without crackles, rhonchi or wheezes, nonlabored breathing Cardio: regular rate, regular rhythm with S1-S2 Abdomen: nondistended, normoactive bowel sounds, soft, nontender to palpation Extremities: no edema, erythema, or tenderness to palpation, DP pulses 2+ bilaterally Skin: no rashes or lesions, warm and dry Psych: appropriate mood and affect, judgment and insight intact DS: Data Data Completed and Pending Labs on day of discharge: Labs from last 24 hours 12/06/24 05:57 WBC 5.8 RBC 4.20 L Hgb 12.9 L Hct 39.5 L MCV 94.0 MCH 30.7 MCHC 32.7 RDW 12.2 Plt Count 207 MPV 9.8 Immature Gran % (Auto) 0.3 Neut % (Auto) 58.8 Lymph % (Auto) 28.9 [place] % (Auto) 9.1 H Eos % (Auto) 2.4 Baso % (Auto) 0.5 Lymph # (Auto) 1.68 [place] # (Auto) 0.5 Eos # (Auto) 0.1 Baso # (Auto) 0.0 Abs Immat Gran (auto) 0.02 Absolute Neuts (auto) 3.4 Absolute Nucleated RBC 0.000 Nucleated RBC % 0.0 Sodium 140 Potassium 4.1 Chloride 105 Carbon Dioxide 28 Anion Gap 7 BUN 10 D Creatinine 0.58 L Estim Creat Clear Calc 101 Estimated GFR > 60 Glucose 104 Calcium 8.9 Magnesium 1.9 Total Bilirubin 0.6 AST 30 ALT 28 Alkaline Phosphatase 74 Total Protein 6.0 L Albumin 3.8 Discharge Plan Discharge Attending physician on discharge: Shira Lord Consulting providers: Ismael Quevedo; Nils Herbert Discharging Clinician: Yvon Lipscomb Patient Disposition: Home Activity: may shower, unlimited and as tolerated Diet: regular Discharge Instructions: * Take all medications as prescribed even if feeling better * Eat well balanced meals and do not over hydrate * Keep active * Keep an eye on your stool, should your stool be black or dark purple, you should come back to the hospital * Change positions slowly, take a break between each position change * Get labs in one week * If you should experience any chest pain, shortness of breath, temps >100.4 or any other worrisome symptoms please follow up with your PCP come back to the hospital * Follow up with your primary in 1 weeks * It has been a pleasure taking care of you thank you for using our services Patient Instructions: Antibiotic Form Patient Language: Serbian Stand Alone Forms: General Discharge Information Follow-up/Referrals: Luke Magaña MD [Primary Care Provider] - 1 Week Discharge Medications: Continued aspirin [Adult Aspirin Regimen] 81 mg tablet,delayed release (DR/EC) 81 mg PO DAILY ezetimibe 10 mg tablet 10 mg PO DAILY rosuvastatin 40 mg tablet 40 mg PO DAILY Qty: 90 1RF metoprolol succinate 25 mg tablet extended release 24 hr 25 mg PO DAILY Qty: 1 0RF albuterol-budesonide 90-80 mcg/actuation HFA aerosol inhaler 2 inh inhalation DAILY Qty: 10.7 0RF Rx Instructions: as a single dose before workouts; may repeat up to 6 doses per day (12 inhalations) Date of admission: 12/05/24 03:00 Primary Care Provider: Luke Magaña Admitting Provider: Hannah Mejias Attending physician on admission: Hannah Mejias Condition: Stable Quality VTE Prophylaxis VTE prophylaxis: mechanical ordered Hospitalist MIPS Heart Failure (Exclusion) Patient has history of Heart Transplant or Left Ventricular Assistive Device?: No IF YES, STOP HERE Heart Failure (Qualifier) Patient has current or prior documentation of LVEF less than or equal to 40%, or mod/servere depressed LVSF?: No IF NO, STOP HERE
== END 2024-12-06 12:15 | disposition home or self-care (01) ==
LOC: ANHED 12-05 04:16 → ANH3MEDSUR 12-05 12:51
PROVIDERS: Internal Medicine Gastroenterology; Nurse Practitioner; Admitting Provider General Practice; Emergency Provider Student in an Organized Health Care Education/Training Program; PCP Family Medicine; Visit Provider Internal Medicine
PROC: 0DJD8ZZ Inspection of Lower Intestinal Tract, Via Natural or Artificial Opening Endoscopic (ICD-10-PCS; CPT 45378; principal; 2024-12-06 14:00)
DX: K57.31 Diverticulosis of large intestine without perforation or abscess with bleeding (principal); K64.8 Other hemorrhoids; D62 Acute posthemorrhagic anemia; I25.10 Atherosclerotic heart disease of native coronary artery without angina pectoris; I10 Essential (primary) hypertension; E78.49 Other hyperlipidemia; Z79.51 Long term (current) use of inhaled steroids; Z79.82 Long term (current) use of aspirin; Z79.899 Other long term (current) drug therapy; Z95.5 Presence of coronary angioplasty implant and graft
CPT/HCPCS: 45378; 36415; 74177; 80053; 83605; 83735; 85014; 85018; 85025; 85610; 85730; 86850; 86900; 86901; 96361; 96374; 99285; A9270; G0378; J2704; J7120; Q9967